=== PATIENT | male | born 1940 | race Caucasian/White ===

== ENCOUNTER → 2017-04-11 | Outpatient (CLI) | payer OTHER ==
[~2017-04-11] MED LIST: ALLO300T2 PO; ATOR-24 PO; CHOL100010 PO; HYDR2.5C37 TOP; LISI-461 PO
[2017-04-11 12:43] LABS: ALT/SGPT 24 U/L (12-78); BLOOD UREA NITROGEN 32 mg/dl (7-18); BUN/CREATININE RATIO 21.3 (10-20); CARBON DIOXIDE 28 mmol/L (21-32); CHLORIDE 108 mmol/L (98-107); CHOLESTEROL 116 mg/dl (0-200); GLUCOSE 95 mg/dl (70-99); POTASSIUM 3.9 mmol/L (3.5-5.1); SODIUM 143 mmol/L (136-145); TRIGLYCERIDES 95 mg/dl (0-150); VERY LOW DENSITY LIPOPROT CALC 19 mg/dl
[2017-04-11 12:47] LABS: ALB/GLOB RATIO 1.2 (0.9-2); ALKALINE PHOSPHATASE 66 U/L (45-117); AST/SGOT 26 U/L (15-37); CHOLESTEROL/HDL RATIO 3.3; HDL CHOLESTEROL 35 mg/dl; LDL CHOLESTEROL CALCULATED 62 mg/dl
[2017-04-11 12:50] LABS: CALCIUM 9.2 mg/dl (8.5-10.1)
[2017-04-11 13:12] LABS: ESTIMATED AVERAGE GLUCOSE 117 mg/dl; HA1C FLAG Normal (Normal)
--- NOTE | 2017-04-15 08:39 | CODING QUERY MEDICAL NECESSITY ---
SUPPORTING DIAGNOSIS NEEDED Dr. Harrell, A supporting diagnosis is required for the test/procedure performed on this patient in order for us to be reimbursed by the patient's insurance. Please provide a supporting diagnosis for the following test/procedure listed below next to the test name along with your signature. *If there is no additional diagnosis for this patient that would support the following test/procedure please document that below next to the test/procedure. Test(s)/Procedure(s) that require a supporting diagnosis: * [id number] GLYCATED HEMOGLOBIN DIAGNOSIS: DATE OF SERVICE: 04/11/17 Provider Signature: Date: Thank you Jameson Rios [facility] Information Management Once completed, please kindly fax back to [phone] For questions please call [phone]
== END | disposition home or self-care (01) ==
LOC: C.LABBFT 08:39
PROVIDERS: ATTEND Nurse Practitioner
DX: E78.00 Pure hypercholesterolemia, unspecified (principal); Z12.5 Encounter for screening for malignant neoplasm of prostate; R73.03 Prediabetes

== ENCOUNTER → 2017-04-19 | Outpatient (CLI) | payer OTHER ==
[2017-04-19 12:49] LABS: CALCIUM 9.2 mg/dl (8.5-10.1)
[2017-04-19 12:55] LABS: BLOOD UREA NITROGEN 27 mg/dl (7-18); BUN/CREATININE RATIO 18.1 (10-20); CARBON DIOXIDE 28 mmol/L (21-32); CHLORIDE 106 mmol/L (98-107); GLUCOSE 103 mg/dl (70-99); POTASSIUM 4.2 mmol/L (3.5-5.1); SODIUM 141 mmol/L (136-145)
== END | disposition home or self-care (01) ==
LOC: C.LABBFT 08:49
PROVIDERS: ATTEND Nurse Practitioner
DX: I10 Essential (primary) hypertension (principal)

== ENCOUNTER → 2017-10-04 | Outpatient (CLI) | payer OTHER ==
[2017-10-04 12:19] LABS: ALT/SGPT 22 U/L (12-78); AST/SGOT 24 U/L (15-37); BLOOD UREA NITROGEN 22 mg/dl (7-18); BUN/CREATININE RATIO 13.8 (10-20); CARBON DIOXIDE 27 mmol/L (21-32); CHLORIDE 105 mmol/L (98-107); CHOLESTEROL 154 mg/dl (0-200); CREATININE 1.56 mg/dl (0.60-1.40); GLUCOSE 96 mg/dl (70-99); POTASSIUM 4.8 mmol/L (3.5-5.1); SODIUM 141 mmol/L (136-145); TRIGLYCERIDES 141 mg/dl (0-150); VERY LOW DENSITY LIPOPROT CALC 28 mg/dl
[2017-10-04 12:26] LABS: ALB/GLOB RATIO 1.1 (0.9-2); ALKALINE PHOSPHATASE 73 U/L (45-117); CHOLESTEROL/HDL RATIO 3.4; ESTIMATED AVERAGE GLUCOSE 111 mg/dl; HA1C FLAG Normal (Normal); HDL CHOLESTEROL 45 mg/dl; LDL CHOLESTEROL CALCULATED 81 mg/dl
== END | disposition home or self-care (01) ==
LOC: C.LABBFT 09:18
PROVIDERS: ATTEND Nurse Practitioner
DX: R73.03 Prediabetes (principal); Z12.5 Encounter for screening for malignant neoplasm of prostate

== ENCOUNTER → 2018-04-03 | Outpatient (CLI) | payer OTHER ==
[2018-04-03 12:23] LABS: BASO % 0.6 %; BASO ABS # 0.06 K/uL (0-0.2); EOS % 9.4 %; HEMATOCRIT 45.3 % (42-52); HEMOGLOBIN 15.8 g/dL (14.0-18.0); IG# 0.03 K/uL (0.00-0.02); LYMPH ABS # 1.34 K/uL (1.2-3.4); MEAN CORPUSCULAR HEMOGLOBIN 32.8 pg (25-34); MEAN CORPUSCULAR HGB CONC 34.9 g/dl (32-36); MEAN PLATELET VOLUME 10.6 fL (7.4-10.4); MONO ABS # 1.24 K/uL (0.11-0.59); NEUT % 62.7 %; NEUT ABS # 5.98 K/uL (1.4-6.5); PLATELET COUNT 223 K/uL (130-400); RED CELL DISTRIBUTION WIDTH CV 12.4 % (11.5-14.5); RED CELL DISTRIBUTION WIDTH SD 42.7 fL (36.4-46.3); WHITE BLOOD COUNT 9.55 K/uL (4.8-10.8)
[2018-04-03 12:43] LABS: HEMOGLOBIN A1C 5.9 % (4.5-5.6)
[2018-04-03 12:47] LABS: ALBUMIN 3.7 gm/dl (3.4-5.0); ALT/SGPT 19 U/L (12-78); AST/SGOT 21 U/L (15-37); BLOOD UREA NITROGEN 21 mg/dl (7-18); CARBON DIOXIDE 28 mmol/L (21-32); CREATININE 1.67 mg/dl (0.60-1.40); GLUCOSE 102 mg/dl (70-99); POTASSIUM 3.9 mmol/L (3.5-5.1); SODIUM 141 mmol/L (136-145)
[2018-04-03 12:51] LABS: ALKALINE PHOSPHATASE 73 U/L (45-117); TOTAL PROTEIN 7.4 gm/dl (6.4-8.2)
== END | disposition home or self-care (01) ==
LOC: C.LABBFT 10:32
PROVIDERS: ATTEND Nurse Practitioner
DX: R73.03 Prediabetes (principal)

== ENCOUNTER 2022-01-14 13:25 | Inpatient (IN) ==
[2022-01-14 14:55] LABS: Hematocrit (blood only) 45.7 % (42-52); Hemoglobin 15.8 g/dL (14.0-18.0); Mean Corpuscular Hemoglobin 31.8 pg (25-34); Mean Corpuscular Hgb Conc 34.6 g/dL (32-36); Mean Platelet Volume 10.5 fL (7.4-10.4); Platelet Count 255 K/uL (130-400); RDW Standard Deviation 47.1 fL (36.4-46.3); Red Blood Count 4.97 M/uL (4.7-6.1); White Blood Count 14.58 K/uL (4.8-10.8)
[2022-01-14 15:20] LABS: Alanine Aminotransferase 50 U/L (7-52); Albumin Globulin Ratio 0.9 (0.9-2); Albumin Level 3.4 gm/dl (3.4-5.0); Alkaline Phosphatase 70 U/L (34-104); Anion Gap 7 (3-11); Aspartate Aminotransferase 65 U/L (13-39); BUN Creatinine Ratio 17.6 (10-20); Bilirubin,Total 0.7 mg/dl (0.2-1.0); Blood Urea Nitrogen 33 mg/dl (6-23); Calcium 9.6 mg/dl (8.5-10.1); Carbon Dioxide 25 mmol/L (21-32); Chloride 104 mmol/L (98-107); Est GFR (African American) 38.8 ml/min; Est GFR (Non-African American) 33.4 ml/min; Globulin 3.9 gm/dl (2.5-4.0); Glucose 98 mg/dl (70-99(Fasting)); Magnesium 2.2 mg/dl (1.7-2.4); Phosphorus 3.5 mg/dl (2.5-4.9); Potassium 4.8 mmol/L (3.5-5.1); Sodium 136 mmol/L (136-145); Total Protein 7.3 gm/dl (6.0-8.3)
--- NOTE | 2022-01-14 15:22 | XRay Report ---
XR chest 1V portable CLINICAL HISTORY: cough, shortness of breath COMPARISON STUDY: No previous studies for comparison. FINDINGS: Lung volumes are normal. No pneumothorax or pleural effusion is noted. Extensive bilateral airspace opacities are present. Cardiomegaly is noted. There is no evidence for pulmonary edema. IMPRESSION: Extensive bilateral airspace opacities which favor an infectious process such as viral p neumonia. Radiographic follow up to ensure resolution is recommended. ACT 112: Negative or not required by law. Electronically signed by: Kevin Palmer M.D. 01/14/2022 3:21 PM
[2022-01-14 15:30] LABS: Basophils # (auto) 0.04 K/uL (0-0.2); Basophils % (auto) 0.3 %; Eosinophils # (auto) 0.07 K/uL (0-0.5); Eosinophils % (auto) 0.5 %; Immature Granulocytes # (auto) 0.04 K/uL (0.00-0.02); Immature Granulocytes % (auto) 0.3 %; Lymphocytes # (auto) 2.18 K/uL (1.2-3.4); Monocytes % (auto) 5.5 %; Neutrophils # (auto) 11.45 K/uL (1.4-6.5); Neutrophils % (auto) 78.4 %; RBC Morphology Unremarkable
[2022-01-14] MEDS ORDERED: dexAMETHasone**PF** 10 MG/ML VIAL IV ONE (15:33)
[2022-01-14] MEDS ORDERED: guaiFENesin 600 MG TABCR PO STA (15:33)
[2022-01-14] MEDS ORDERED: IPRATROPIUM BROMIDE/ALBUTEROL respimat INH INH STA (15:33)
--- NOTE | 2022-01-14 16:34 | Emergency Department Note ---
Impression & Plan Pneumonia due to COVID-19 virus, CKD (chronic kidney disease), Elevated troponin, Acute UTI, Hypoxia ED Provider Note NAME: LEEANN BLUM AGE: 81 SEX: M ARRIVES VIA: Walk-In INFORMANT: Patient, Son ED PROVIDER(S): Richard Danielle MD CHIEF COMPLAINT: Referred, hypoxia, confusion, FTT PLAN: Disposition: Admit MEDICAL DECISION MAKING: The patient is a pleasant 81-year-old gentleman with a past medical history of CKD, GERD, hypertension, hyperlipidemia, gout who presents to the emergency department for evaluation of hypoxia after being seen by his PCPs office today where they were concerned for his hypoxia and failure to thrive. The patient is a poor historian as is his son at the bedside. The patient denies any particular complaints despite his oxygen documented to be in the low 80s on room air at his PCPs appointment. Per records the family had respiratory illness within the past month but the majority did not get tested for COVID-19. It appears that a single family ever did get tested and tested positive. The patient initially is against being admitted to the hospital but upon further explanation he is in agreement. His son is also in agreement. The extent to which the patient can consent is questionable. He has an indwelling See catheter which was recently placed due to urinary retention and he continues to ask to be allowed to get up and walk to the bathroom to urinate. Patient was seen in the ED on 01/10 for acute urinary retention when his see catheter was placed. UA was negative at that time. He was discharged with Flomax and urology referral. On arrival the patient is in no acute distress, afebrile with stable vital signs. He appears clinically dry. He has scattered intermittent wheezes and rhonchi of bilateral lung cevallos. He exhibits mild confusion per HPI above and otherwise has no focal neurologic deficits. EKG without overt acute ischemia. CXR negative with extensive bilateral airspace opacities c/w viral pna. WBC 14.5K. H/H, platelets wnl. Chemistry without acidosis. Cr 1.8 within prior range of values. Electrolytes unremarkable. AST 65, nonspecific. Otherwise, LFTs without significant abnormality. Troponin 0.05 marginally elevated above normal in the setting of patient's CKD. Covid-19 RNA, NAAT was positive. Patient treated with dexamethasone given hypoxia. CT head negative for acute process. CT chest further characterizes Extensive bilateral mixed groundglass and consolidative opacities c/w with covid-19 pna given positive Covid-19 RNA, NAAT test. Incidental mild fusiform dilation of ascending thoracic aorta is seen. Prostamegaly is noted c/w chronic bladder outlet obstruction. No hydronephrosis though mild nonspecific bilateral perinephric stranding is noted. UA resulting from see catheter after bag change is suggestive of infection. ABX per admitting team. Case was d/w ANN-MARIE Wallace hospitalist who will evaluate the patient for admission. Triage Nursing notes reviewed and agree them. Prior medical records reviewed Vital Signs: reviewed and remarkable for hypoxia. Differential diagnosis: Infection, dehydration, metabolic abnormality, hypo/hyperglycemia, electrolyte disturbance, anemia, hypoxia, cardiac sources, intracerebral event, toxicologic, neurologic, as well as other pathologies. ER treatment provided: See below. Diagnostics interpreted by me: ECG: Sinus tachycardia, 105 bpm, no ectopy, no overt ST elevation or depression, QTC 430, QRS 76. Cardiac Monitoring: An order for continuous cardiac monitoring was placed and demonstrated sinus tachycardia, 105 bpm, no ectopy Laboratory studies: See below Imaging studies: See below Consultation(s): Case was d/w ANN-MARIE Wallace hospitalist who will evaluate the patient for admission. HPI: The patient is a pleasant 81-year-old gentleman with a past medical history of CKD, GERD, hypertension, hyperlipidemia, gout who presents to the emergency department for evaluation of hypoxia after being seen by his PCPs office today where they were concerned for his hypoxia and failure to thrive. The patient is a poor historian as is his son at the bedside. The patient denies any particular complaints despite his oxygen documented to be in the low 80s on room air at his PCPs appointment. Per records the family had respiratory illness within the past month but the majority did not get tested for COVID-19. It appears that a single family ever did get tested and tested positive. The patient initially is against being admitted to the hospital but upon further explanation he is in agreement. His son is also in agreement. The extent to which the patient can consent is questionable. He has an indwelling See catheter which was recently placed due to urinary retention and he continues to ask to be allowed to get up and walk to the bathroom to urinate. ROS: See above HPI for pertinent positives & negatives. A total of 10 systems reviewed and were otherwise negative. PAST MEDICAL HISTORY:See Below PAST SURGICAL HISTORY:See Below FAMILY HISTORY:See Below SOCIAL HISTORY:See Below HOME MEDICATIONS:See Below ALLERGIES:See Below VITALS:See Below PHYSICAL EXAMINATION: GENERAL: Awake, alert, unkempt-appearing, fatigued, in no distress HENT: Normocephalic, atraumatic. Oropharynx with dry mucous membranes and otherwise unremarkable. EYES: Normal conjunctiva. Sclera non-icteric. NECK: Supple. No nuchal rigidity. FROM. No JVD. RESPIRATORY: Scattered intermittent wheezes and rhonchi of bilateral lung cevallos. CARDIAC: Regular rate, normal rhythm. Extremities warm and well perfused. Pulses equal. ABDOMEN: Soft, non-distended. No tenderness to palpation. No rebound or guarding. No masses. : See catheter present. RECTAL: Deferred. MUSCULOSKELETAL: Chest examination reveals no tenderness. The back is symmetrical on inspection without obvious abnormality. There is no CVA tenderness to palpation. No joint edema. LOWER EXTREMITIES: Calves are equal size bilaterally and non-tender. No edema. No discoloration. NEURO: Mild confusion. No focal neurologic deficits SKIN: No rash or jaundice noted. Richard Danielle MD Past Med/Surg History Medical History GERD with apnea Hypertension Pain and swelling of left lower leg Surgical History History of cholecystectomy History of colonoscopy History of hernia repair No pertinent past surgical history Family History Mother Diabetes Other Hypertension Denies family history of Ovarian cancer Prostate cancer Myocardial infarction Breast cancer Colorectal cancer Social History Smoking Status: Former smoker Tobacco Type: Cigarettes Age Started Using Tobacco: 14; Age Quit Using Tobacco: 24; packs per day: 2; Second Hand Exposure: Yes (as child ); Hx Alcohol Use: Yes (rarely ) Hx Substance Use: No Preferred Language: Dutch Communication Ability: Effective Visual Impairment: No Limitations Hearing Ability: Use of Hearing Aid Data Management Analyst Required: No Beliefs That Will Affect Care: None marital status: / Current Living Situation: Family Current Living Situation Comment: his oldest son lives with him current occupational status: 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 Feels Safe at Home: Yes Childhood Exposure to Second-Hand Smoke: Yes caffeine: Yes Dental Care, Regularly: No Physical Activity Frequency: Does not Exercise Seatbelt Use: always Sunscreen Use: No Allergies Allergies Allergy/AdvReac Type Severity Reaction Status Date / Time adhesive tape Allergy Intermediate REDDENED Verified 01/14/22 15:44 SKIN atorvastatin [From Lipitor] AdvReac Intermediate myalgias Verified 01/14/22 15:44 Home Meds Previous Rx's Medication Instructions Recorded cholecalciferol (vitamin D3) 50 2,000 units PO DAILY #90 cap 06/13/19 mcg (2,000 unit) capsule atorvastatin 40 mg tablet 40 mg PO DAILY #90 tab 06/29/21 lisinopril 10 mg tablet 10 mg PO DAILY #90 tab 06/29/21 tamsulosin 0.4 mg capsule 0.4 mg PO DAILY #90 cap 06/29/21 Results & Data (ED) Vital Signs Vital Signs - 24 hr 01/14/22 13:49 01/14/22 15:00 01/14/22 18:00 Temperature 37 C Temperature Source Temporal Artery Scan Pulse Rate 119 H Pulse Rate [Right Finger] 99 H 86 Pulse Rhythm [Right Finger] Regular Pulse Strength [Right Finger] Normal Respiratory Rate 20 19 18 Respiratory Effort / Characteristics Non-Labored Respiratory Depth Normal Respiratory Pattern Regular Blood Pressure 128/84 Blood Pressure [Left Arm] 106/83 131/79 Blood Pressure Mean 98 Blood Pressure Mean [Left Arm] 90 96 Blood Pressure Position Sitting Blood Pressure Position [Left Arm] Lying Pulse Oximetry 91 93 93 Oxygen Delivery Method Room Air Room Air Room Air Sepsis Recent Fever Within 48 Hours No Sepsis New/Unexplained Change in Mental Status No Sepsis Action Taken by Nursing No Action Required 01/14/22 19:50 01/14/22 20:18 Temperature Temperature Source Pulse Rate Pulse Rate [Right Finger] 96 H 100 H Pulse Rhythm [Right Finger] Regular Pulse Strength [Right Finger] Normal Respiratory Rate 18 Respiratory Effort / Characteristics Non-Labored Respiratory Depth Normal Respiratory Pattern Regular Blood Pressure Blood Pressure [Left Arm] 117/75 Blood Pressure Mean Blood Pressure Mean [Left Arm] 89 Blood Pressure Position Blood Pressure Position [Left Arm] Lying Pulse Oximetry 97 93 Oxygen Delivery Method Room Air Sepsis Recent Fever Within 48 Hours Sepsis New/Unexplained Change in Mental Status Sepsis Action Taken by Nursing Laboratory Data Attestation: I reviewed the patient's lab results. Result diagrams: 01/14/22 14:42 01/14/22 14:42 Lab Results 01/14/22 01/14/22 01/14/22 Range/Units 14:42 14:42 14:42 WBC 14.58 H (4.8-10.8) K/uL RBC 4.97 (4.7-6.1) M/uL Hgb 15.8 (14.0-18.0) g/dL Hct 45.7 (42-52) % MCV 92.0 (80-100) fL MCH 31.8 (25-34) pg MCHC 34.6 (32-36) g/dL RDW Std Deviation 47.1 H (36.4-46.3) fL RDW Coeff of Yudelka 14.0 (11.5-14.5) % Plt Count 255 (130-400) K/uL MPV 10.5 H (7.4-10.4) fL Immature Gran % (Auto) 0.3 % Neut % (Auto) 78.4 % Lymph % (Auto) 15.0 % [place] % (Auto) 5.5 % Eos % (Auto) 0.5 % Baso % (Auto) 0.3 % Neut # (Auto) 11.45 H (1.4-6.5) K/uL Lymph # (Auto) 2.18 (1.2-3.4) K/uL [place] # (Auto) 0.80 H (0.11-0.59) K/uL Eos # (Auto) 0.07 (0-0.5) K/uL Baso # (Auto) 0.04 (0-0.2) K/uL Immature Gran # (Auto) 0.04 H (0.00-0.02) K/uL RBC Morphology Unremarkable Sodium 136 (136-145) mmol/L Potassium 4.8 (3.5-5.1) mmol/L Chloride 104 (98-107) mmol/L Carbon Dioxide 25 (21-32) mmol/L Anion Gap 7 (3-11) BUN 33 H (6-23) mg/dl Creatinine 1.87 H (0.6-1.4) mg/dl Est Cr Clr Drug Dosing Not Reportable Est GFR ( Amer) 38.8 ml/min Est GFR (Non-Af Amer) 33.4 ml/min BUN/Creatinine Ratio 17.6 (10-20) Glucose 98 (70-99(Fasting)) mg/dl Calcium 9.6 (8.5-10.1) mg/dl Phosphorus 3.5 Cancelled (2.5-4.9) mg/dl Magnesium 2.2 Cancelled (1.7-2.4) mg/dl Total Bilirubin 0.7 (0.2-1.0) mg/dl AST 65 H (13-39) U/L ALT 50 (7-52) U/L Alkaline Phosphatase 70 (34-104) U/L Troponin I (0-0.04) ng/ml B-Natriuretic Peptide (0-100) pg/ml Total Protein 7.3 (6.0-8.3) gm/dl Albumin 3.4 (3.4-5.0) gm/dl Globulin 3.9 (2.5-4.0) gm/dl Albumin/Globulin Ratio 0.9 (0.9-2) Urine Color Urine Appearance (Clear) Urine pH (4.5-7.5) Ur Specific Hunter (1.000-1.030) Urine Protein (Negative) Urine Glucose (UA) (Negative) Urine Ketones (Negative) Urine Blood (Negative) Urine Nitrite (Negative) Urine Bilirubin (Negative) Urine Urobilinogen (Negative) Ur Leukocyte Esterase (Negative) Urine WBC (Auto) (0-5) /hpf Urine RBC (Auto) (0-4) /hpf U Hyaline Cast (Auto) (0-5) /lpf U Epithel Cells (Auto) (0-5) /lpf Urine Bacteria (Auto) (Negative) SARS-CoV-2, RNA, NAAT (NEGATIVE) 01/14/22 01/14/22 01/14/22 Range/Units 14:42 15:34 16:33 WBC (4.8-10.8) K/uL RBC (4.7-6.1) M/uL Hgb (14.0-18.0) g/dL Hct (42-52) % MCV (80-100) fL MCH (25-34) pg MCHC (32-36) g/dL RDW Std Deviation (36.4-46.3) fL RDW Coeff of Yudelka (11.5-14.5) % Plt Count (130-400) K/uL MPV (7.4-10.4) fL Immature Gran % (Auto) % Neut % (Auto) % Lymph % (Auto) % [place] % (Auto) % Eos % (Auto) % Baso % (Auto) % Neut # (Auto) (1.4-6.5) K/uL Lymph # (Auto) (1.2-3.4) K/uL [place] # (Auto) (0.11-0.59) K/uL Eos # (Auto) (0-0.5) K/uL Baso # (Auto) (0-0.2) K/uL Immature Gran # (Auto) (0.00-0.02) K/uL RBC Morphology Sodium (136-145) mmol/L Potassium (3.5-5.1) mmol/L Chloride (98-107) mmol/L Carbon Dioxide (21-32) mmol/L Anion Gap (3-11) BUN (6-23) mg/dl Creatinine (0.6-1.4) mg/dl Est Cr Clr Drug Dosing Est GFR ( Amer) ml/min Est GFR (Non-Af Amer) ml/min BUN/Creatinine Ratio (10-20) Glucose (70-99(Fasting)) mg/dl Calcium (8.5-10.1) mg/dl Phosphorus (2.5-4.9) mg/dl Magnesium (1.7-2.4) mg/dl Total Bilirubin (0.2-1.0) mg/dl AST (13-39) U/L ALT (7-52) U/L Alkaline Phosphatase (34-104) U/L Troponin I 0.05 H* (0-0.04) ng/ml B-Natriuretic Peptide 88 (0-100) pg/ml Total Protein (6.0-8.3) gm/dl Albumin (3.4-5.0) gm/dl Globulin (2.5-4.0) gm/dl Albumin/Globulin Ratio (0.9-2) Urine Color Urine Appearance (Clear) Urine pH (4.5-7.5) Ur Specific Hunter (1.000-1.030) Urine Protein (Negative) Urine Glucose (UA) (Negative) Urine Ketones (Negative) Urine Blood (Negative) Urine Nitrite (Negative) Urine Bilirubin (Negative) Urine Urobilinogen (Negative) Ur Leukocyte Esterase (Negative) Urine WBC (Auto) (0-5) /hpf Urine RBC (Auto) (0-4) /hpf U Hyaline Cast (Auto) (0-5) /lpf U Epithel Cells (Auto) (0-5) /lpf Urine Bacteria (Auto) (Negative) SARS-CoV-2, RNA, NAAT POSITIVE A* (NEGATIVE) 01/14/22 Range/Units 18:30 WBC (4.8-10.8) K/uL RBC (4.7-6.1) M/uL Hgb (14.0-18.0) g/dL Hct (42-52) % MCV (80-100) fL MCH (25-34) pg MCHC (32-36) g/dL RDW Std Deviation (36.4-46.3) fL RDW Coeff of Yudelka (11.5-14.5) % Plt Count (130-400) K/uL MPV (7.4-10.4) fL Immature Gran % (Auto) % Neut % (Auto) % Lymph % (Auto) % [place] % (Auto) % Eos % (Auto) % Baso % (Auto) % Neut # (Auto) (1.4-6.5) K/uL Lymph # (Auto) (1.2-3.4) K/uL [place] # (Auto) (0.11-0.59) K/uL Eos # (Auto) (0-0.5) K/uL Baso # (Auto) (0-0.2) K/uL Immature Gran # (Auto) (0.00-0.02) K/uL RBC Morphology Sodium (136-145) mmol/L Potassium (3.5-5.1) mmol/L Chloride (98-107) mmol/L Carbon Dioxide (21-32) mmol/L Anion Gap (3-11) BUN (6-23) mg/dl Creatinine (0.6-1.4) mg/dl Est Cr Clr Drug Dosing Est GFR ( Amer) ml/min Est GFR (Non-Af Amer) ml/min BUN/Creatinine Ratio (10-20) Glucose (70-99(Fasting)) mg/dl Calcium (8.5-10.1) mg/dl Phosphorus (2.5-4.9) mg/dl Magnesium (1.7-2.4) mg/dl Total Bilirubin (0.2-1.0) mg/dl AST (13-39) U/L ALT (7-52) U/L Alkaline Phosphatase (34-104) U/L Troponin I (0-0.04) ng/ml B-Natriuretic Peptide (0-100) pg/ml Total Protein (6.0-8.3) gm/dl Albumin (3.4-5.0) gm/dl Globulin (2.5-4.0) gm/dl Albumin/Globulin Ratio (0.9-2) Urine Color Yellow Urine Appearance Clear (Clear) Urine pH 7.5 (4.5-7.5) Ur Specific Hunter 1.019 (1.000-1.030) Urine Protein 1+ H (Negative) Urine Glucose (UA) Negative (Negative) Urine Ketones Negative (Negative) Urine Blood 2+ H (Negative) Urine Nitrite Positive A (Negative) Urine Bilirubin Negative (Negative) Urine Urobilinogen Negative (Negative) Ur Leukocyte Esterase 2+ H (Negative) Urine WBC (Auto) >30 H (0-5) /hpf Urine RBC (Auto) 10-30 H (0-4) /hpf U Hyaline Cast (Auto) 1-5 (0-5) /lpf U Epithel Cells (Auto) 0-5 (0-5) /lpf Urine Bacteria (Auto) 4+ H (Negative) SARS-CoV-2, RNA, NAAT (NEGATIVE) Administered Medications Albuterol (Albut/Ipratrop 3mg/0.5mg Neb 3 Ml Vial) 3 ml NEB QIDR PASQUALE; Protocol Stop: 02/13/22 18:59 Last Admin: 01/14/22 19:37 Dose: 3 ml Documented by: [id number] Sodium Chloride (Nss) 500 mls @ 100 mls/hr IV .Q5H [facility] Stop: 02/13/22 15:44 Last Infusion: 01/14/22 20:26 Dose: 100 mls/hr Documented by: [id number] Admin: 01/14/22 20:25 Dose: 125 mls/hr Documented by: [id number] Infusion: 02/24/22 20:25 Dose: 125 mls/hr Documented by: [id number] Admin: 01/14/22 16:47 Dose: 125 mls/hr Documented by: [id number] Ceftriaxone Sodium 1,000 mg/ (Dextrose) 50 mls @ 100 mls/hr IV Q24H PASQUALE; Protocol Stop: 01/21/22 18:14 Last Infusion: 01/14/22 20:06 Dose: 0 mls/hr Documented by: [id number] Admin: 01/14/22 19:36 Dose: 100 mls/hr Documented by: [id number] Nystatin (Nystatin Oint 15 Gm Tube) 1 appln EXT BID PASQUALE Stop: 02/13/22 20:59 Last Admin: 01/14/22 20:25 Dose: 1 appln Documented by: [id number] Discontinued Medications Albuterol (Ipratropium [place]/Albuterol Respimat Inh) 2 puffs INH NOW STA Stop: 01/14/22 15:34 Last Admin: 01/14/22 16:46 Dose: 2 puffs Documented by: [id number] Azithromycin (Azithromycin 250 Mg Tab) 500 mg PO NOW ONE Stop: 01/14/22 18:16 Last Admin: 01/14/22 19:36 Dose: 500 mg Documented by: [id number] Dexamethasone Sodium Phosphate (DexamethasonePf 10 Mg/Ml Vial) 10 mg IV NOW ONE Stop: 01/14/22 15:34 Last Admin: 01/14/22 16:46 Dose: 10 mg Documented by: [id number] Guaifenesin (Guaifenesin 600 Mg Tabcr) 600 mg PO NOW STA Stop: 01/14/22 15:34 Last Admin: 01/14/22 16:46 Dose: 600 mg Documented by: [id number] Imaging Data Radiologist's Impression: Chest X-Ray 01/14/22 13:55 XR chest 1V portable CLINICAL HISTORY: cough, shortness of breath COMPARISON STUDY: No previous studies for comparison. FINDINGS: Lung volumes are normal. No pneumothorax or pleural effusion is noted. Extensive bilateral airspace opacities are present. Cardiomegaly is noted. There is no evidence for pulmonary edema. IMPRESSION: Extensive bilateral airspace opacities which favor an infectious process such as viral pneumonia. Radiographic follow up to ensure resolution is recommended. ACT 112: Negative or not required by law. Electronically signed by: Kevin Palmer M.D. 01/14/2022 3:[address] 01/14/22 14:57 CT OF THE HEAD WITHOUT CONTRAST CLINICAL HISTORY: Altered mental status. COMPARISON STUDY: No previous studies for comparison. TECHNIQUE: Helical axial images of the head were obtained without IV contrast. Automated exposure control was utilized for the study. A dose lowering technique was utilized adhering to the principles of ALARA. FINDINGS: No acute intracranial hemorrhage, midline shift or mass effect is present. The ventricular system is unremarkable. The basal cisterns are patent. No extra-axial collections are present. White matter hypodensity suggests small vessel disease. There are no findings to suggest acute dural sinus thrombosis or acute territorial infarct. No significant calvarial abnormalities are present. Visualized portions of the sinuses and mastoid air cells are clear. IMPRESSION: No acute intracranial findings. ACT 112: Negative or not required by law. Electronically signed by: Kevin Palmer M.D. 01/14/2022 4:33 PM Abdomen/Pelvis CT 01/14/22 15:31 CT chest diagnostic wo con, CT abd pelvis wo con CT DOSE: 2468.85 mGy.cm CLINICAL HISTORY: 81 years-old Male with ams, hypoxia. Acute hypoxia with altered mental status. COVID Positive. Acute urinary tract infection TECHNIQUE: Multiaxial CT images of the chest, abdomen and pelvis were performed without contrast. A dose lowering technique was utilized adhering to the principles of ALARA. COMPARISON: Chest radiograph of same day, lumbar spine radiographs 02/03/2016 FINDINGS: CT CHEST: No large thyroid nodule. Mildly prominent subcentimeter subcarinal lymph nodes. The heart is upper limits of normal in size. Extensive coronary artery calcifications are noted along with calcifications of the aortic annulus and thoracic aortic arch. Mild fusiform dilation of the ascending thoracic aorta measures 4.2 x 4.1 cm. No pneumothorax, or pleural effusion. Extensive multifocal intermixed groundglass and consolidative opacities are noted within a multilobar and bibasilar predominant distribution. The central airways are patent. Unremarkable soft tissues. Degenerative changes of the shoulders and spi ne. CT ABDOMEN/PELVIS: No pneumatosis or pneumoperitoneum. The unenhanced spleen, pancreas, adrenal glands and liver appear unremarkable. Cholecystectomy. Mild nonspecific bilateral perinephric stranding. 1.5 cm cortical calcification of the interpolar left kidney. There is associated cortical thinning with parenchymal scarring within the area of calcification. No ureteral calculi or hydronephrosis. A See catheter is noted within a decompressed urinary bladder which demonstrates wall thickening. Prostamegaly. Small fat filled inguinal hernias. Atherosclerosis of the abdominal aorta without aneurysm. No adenopathy. Small hiatal hernia. No bowel obstruction or bowel wall thickening. Mild fecal retention. Noninflamed appendix. Prior ventral abdominal wall herniorrhaphy. Soft tissues are otherwise unremarkable. Degenerative changes of the spine, pelvis and hips. IMPRESSION: 1. Extensive bilateral mixed groundglass and consolidative opacities within a bibasilar prominent distribution are compatible with viral pneumonia. 2. Mild fusiform dilation of the ascending thoracic aorta, 4.2 x 4.1 cm. 3. No bowel obstruction or bowel wall thickening. Normal appendix. 4. Small hiatal hernia. 5. Prostamegaly with findings suggestive of chronic bladder outlet obstruction. 6. 1.5 cm left renal calcification. ACT 112: Negative or not required by law. Electronically signed by: Johnny Browning M.D. 01/14/2022 4:[address] 01/14/22 15:31 CT chest diagnostic wo con, CT abd pelvis wo con CT DOSE: 2468.85 mGy.cm CLINICAL HISTORY: 81 years-old Male with ams, hypoxia. Acute hypoxia with altered mental status. COVID Positive. Acute urinary tract infection TECHNIQUE: Multiaxial CT images of the chest, abdomen and pelvis were performed without contrast. A dose lowering technique was utilized adhering to the principles of ALARA. COMPARISON: Chest radiograph of same day, lumbar spine radiographs 02/03/2016 FINDINGS: CT CHEST: No large thyroid nodule. Mildly prominent subcentimeter subcarinal lymph nodes. The heart is upper limits of normal in size. Extensive coronary artery calcifications are noted along with calcifications of the aortic annulus and thoracic aortic arch. Mild fusiform dilation of the ascending thoracic aorta measures 4.2 x 4.1 cm. No pneumothorax, or pleural effusion. Extensive multifoc al intermixed groundglass and consolidative opacities are noted within a multilobar and bibasilar predominant distribution. The central airways are patent. Unremarkable soft tissues. Degenerative changes of the shoulders and spine. CT ABDOMEN/PELVIS: No pneumatosis or pneumoperitoneum. The unenhanced spleen, pancreas, adrenal glands and liver appear unremarkable. Cholecystectomy. Mild nonspecific bilateral perinephric stranding. 1.5 cm cortical calcification of the interpolar left kidney. There is associated cortical thinning with parenchymal scarring within the area of calcification. No ureteral calculi or hydronephrosis. A See catheter is noted within a decompressed urinary bladder which demonstrates wall thickening. Prostamegaly. Small fat filled inguinal hernias. Atherosclerosis of the abdominal aorta without aneurysm. No adenopathy. Small hiatal hernia. No bowel obstruction or bowel wall thickening. Mild fecal retention. Noninflamed appendix. Prior ventral abdominal wall herniorrhaphy. Soft tissues are otherwise unremarkable. Degenerative changes of the spine, pelvis and hips. IMPRESSION: 1. Extensive bilateral mixed groundglass and consolidative opacities within a bibasilar prominent distribution are compatible with viral pneumonia. 2. Mild fusiform dilation of the ascending thoracic aorta, 4.2 x 4.1 cm. 3. No bowel obstruction or bowel wall thickening. Normal appendix. 4. Small hiatal hernia. 5. Prostamegaly with findings suggestive of chronic bladder outlet obstruction. 6. 1.5 cm left renal calcification. ACT 112: Negative or not required by law. Electronically signed by: Johnny Browning M.D. 01/14/2022 4:47 PM Discharge Plan Visit Data Chief Complaint: Illness Stated Complaint: BP DROPS WHEN STANDING, SHALLOW BREATHING ED Provider: Richard Danielle Discharge Problem: Pneumonia due to COVID-19 virus, CKD (chronic kidney disease), Elevated troponin, Acute UTI, Hypoxia Patient Disposition: Admitted As Inpatient Forms Stand Alone Forms: [facility] Prescriptions Prescriptions: No Action cholecalciferol (vitamin D3) 2,000 unit capsule 2,000 units PO DAILY Qty: 90 RF: 3 atorvastatin 40 mg tablet 40 mg PO DAILY Qty: 90 RF: 3 lisinopril 10 mg tablet 10 mg PO DAILY Qty: 90 RF: 3 tamsulosin 0.4 mg capsule 0.4 mg PO DAILY Qty: 90 RF: 3 Referrals Referrals: Yessy Mills CRNP [Primary Care Provider] -
[2022-01-14] MEDS: SODIUM CHLORIDE 0.9% 500 ML IV SCH ×2 (16:47→20:25)
--- NOTE | 2022-01-14 16:49 | CT Scan Report ---
CT chest diagnostic wo con, CT abd pelvis wo con CT DOSE: 2468.85 mGy.cm CLINICAL HISTORY: 81 years-old Male with ams, hypoxia. Acute hypoxia with altered mental status. COV ID Positive. Acute urinary tract infection TECHNIQUE: Multiaxial CT images of the chest, abdomen and pelvis were performed without contrast. A dose lowering technique was utilized adhering to the principles of ALARA. COMPARISON: Chest radiograph of same day, lumbar spine radiographs 02/03/2016 FINDINGS: CT CHEST: No large thyroid nodule. Mildly prominent subcentimeter subcarinal lymph nodes. The heart is upper li mits of normal in size. Extensive coronary artery calcifications are noted along with calcifications of the aortic annulus and thoracic aortic arch. Mild fusiform dilation of the ascending thoracic aort a measures 4.2 x 4.1 cm. No pneumothorax, or pleural effusion. Extensive multifocal intermixed ground glass and consolidative opacities are noted within a multilobar and bibasilar predominant distributio n. The central airways are patent. Unremarkable soft tissues. Degenerative changes of the shoulders a nd spine. CT ABDOMEN/PELVIS: No pneumatosis or pneumoperitoneum. The unenhanced spleen, pancreas, adrenal glands and liver appear unremarkable. Cholecystectomy. Mild nonspecific bilateral perinephric stranding. 1.5 cm cortical calc ification of the interpolar left kidney. There is associated cortical thinning with parenchymal scarr ing within the area of calcification. No ureteral calculi or hydronephrosis. A Dempsey catheter is note d within a decompressed urinary bladder which demonstrates wall thickening. Prostamegaly. Small fat f illed inguinal hernias. Atherosclerosis of the abdominal aorta without aneurysm. No adenopathy. Small hiatal hernia. No bowel obstruction or bowel wall thickening. Mild fecal retention. Noninflamed appendix. Prior ventral abdominal wall herniorrhaphy. Soft tissues are otherwise unremarkable. Degen erative changes of the spine, pelvis and hips. IMPRESSION: 1. Extensive bilateral mixed groundglass and consolidative opacities within a bibasilar prominent dis tribution are compatible with viral pneumonia. 2. Mild fusiform dilation of the ascending thoracic aorta, 4.2 x 4.1 cm. 3. No bowel obstruction or bowel wall thickening. Normal appendix. 4. Small hiatal hernia. 5. Prostamegaly with findings suggestive of chronic bladder outlet obstruction. 6. 1.5 cm left renal calcification. ACT 112: Negative or not required by law. Electronically signed by: Johnny Browning M.D. 01/14/2022 4:47 PM
--- NOTE | 2022-01-14 17:46 | Electrocardiogram Report ---
Test Reason : Blood Pressure : / mmHG Vent. Rate : 105 BPM Atrial Rate : 105 BPM P-R Int : 162 ms QRS Dur : 076 ms QT Int : 326 ms P-R-T Axes : 063 -12 054 degrees QTc Int : 430 ms Sinus tachycardia Otherwise normal ECG No previous ECGs available Confirmed by Tarik Dumont ([id number]) on 01/14/2022 5:45:50 PM Referred By: Confirmed By:Negro Dumont
[2022-01-14] MEDS ORDERED: MAGNESIUM HYDROXIDE SUSP 30 ML UDC PO PRN (18:15)
[2022-01-14] MEDS ORDERED: cefTRIAXone SODIUM 1,000 MG in DEXTROSE 5% 50 ML IV SCH (18:15)
[2022-01-14] MEDS ORDERED: POLYETHYLENE (MIRALAX) 17 GM PACK PO PRN (18:15)
[2022-01-14] MEDS ORDERED: ALUMINUM/MAGNESIUM SUSP 30 ML UDC PO PRN (18:15)
[2022-01-14] MEDS ORDERED: ACETAMINOPHEN 325 MG TAB PO PRN (18:15)
[2022-01-14] MEDS ORDERED: ONDANSETRON INJ 2 MG/ML 2 ML VIAL IV PRN (18:15)
[2022-01-14] MEDS ORDERED: AZITHROMYCIN 250 MG TAB PO ONE (18:15)
--- NOTE | 2022-01-14 18:51 | History & Physical Report ---
Date of Service January 14, 2022 Assessment & Plan (1) COVID-19: Plan: Unclear as to the acuteness of this diagnosis given his symptom onset and exposure 1 month ago Full admit to med/surg unit Unfortunately without previous positive, will need to initiate isolation from date positive test Place in Covid isolation precautions Currently he is not hypoxic, will defer additional doses of Decadron at this time Outside of the window and not a candidate for remdesivir Initiate DuoNebs 4 times daily Vitamin C, zinc, Vitamin D supplementation Mucolytics Empiric antibiotic coverage with Zithromax and Rocephin in the event of superimposed bacterial pneumonia (2) Leukocytosis: Plan: Unclear etiology? Obtain set of blood cultures, UA prior to administration of antibiotics Sputum culture and Gram stain Empiric Rocephin and Zithromax as noted above Trend CBC (3) Hypoxia: Plan: Transient, not presently hypoxic We will monitor pulse ox Utilize supplemental oxygen as needed for SPO2 less than 90% (4) Acute on chronic renal failure: Plan: Appears intravascularly dry at this time Continue IV fluid hydration with NSS at 100 mL/h Hold lisinopril Monitor renal function with BMP in the morning (5) Failure to thrive: Plan: Suspect that this is related to his Covid diagnosis PT/OT eval Dietitian consult, may benefit from nutritional supplements Case management consult for discharge planning, may require rehab upon discharge (6) Generalized weakness: Plan: As above (7) Acute urinary retention: Plan: Maintain See catheter Obtain UA and urine culture as indicated above Continue Flomax (8) Hypertension: Plan: Hold lisinopril due to acute on chronic renal failure Presently blood pressure acceptable range (9) Hypercholesterolemia: Plan: AST mildly elevated we will hold statin therapy for now Plan: Interventions as outlined above. DVT prophylaxis will be provided in the form of Lovenox 40 mg subcu daily. Regular diet has been ordered. Activity will be allowed out of bed as tolerated with assist. Vital signs per unit protocol. Repeat labs in the morning. Above plan of care has been discussed with Dr. Watkins who will also see and evaluate this patient. History of Present Illness Chief Complaint: Hypoxia, weakness Primary Care Provider: EMILY Schwab Tomi Alexander is a 81-year-old elderly white male with a past medical history of hyper tension, hyperlipidemia, BPH who was seen in his primary care physician's office today, accompanied by his son, due to complaints of generalized weakness, several falls at home, poor appetite and weight loss. Evidently, patient has also been experiencing shortness of breath for the past month. Unfortunately, he is a poor historian and subsequently history is obtained through review of his primary care visits as well as his recent emergency department visit from 01/10/2022. Per his primary care provider's note, patient had Covid exposure approximately 1 month ago and developed cough, chills, and shortness of breath shortly thereafter. He did not seek Covid testing however since that time has had poor appetite, weight loss, worsening shortness of breath, increasing weakness and recent fall about a week ago. He also had acute onset of urinary retention on 01/10 which prompted a visit to the emergency department. During that visit, See catheter was placed and he was encouraged to follow up with urology. He has not yet done so, next appointment with urology is scheduled in April. Again, per documentation, patient was found to be hypoxic in the exam room of his primary care provider's office today with an oxygen saturation of 82% on room air which eventually recovered with some deep breaths to 93% on room air. EKG was performed in the office showing sinus tachycardia and his blood pressure was abnormally low for him at 102/64. Eventually, both the son and patient were agreeable to transfer to the emergency department for further work-up. In the ER this evening, patient noted to have an elevated white count of 14,500 with left shift. Radiologic evidence of groundglass bibasilar opacities consistent with viral pneumonia. Due to acute on chronic renal failure with a creatinine of 1.87 , contrast was not used for this CT. A UA was ordered but has not yet been collected. He tested positive for COVID-19 via rapid antigen testing. He claims to be fully vaccinated. He denies having booster shot. Patient is currently awake and alert but seems somewhat confused. He denies chest pain, shortness of breath at rest, N/V/D, fever, or chills. He does admit to soreness of his testicles and penis. Patient lives at home with his son, he is currently unaccompanied in the emergency department. In the ER, he was started on IV fluid hydration and was given a dose of Decadron. He will be admitted under the hospitalist service for further evaluation care. Allergies Allergy/AdvReac Type Severity Reaction Status Date / Time adhesive tape Allergy Intermediate REDDENED Verified 01/14/22 15:44 SKIN atorvastatin [From Lipitor] AdvReac Intermediate myalgias Verified 01/14/22 15:44 Home Medications Medication Instructions Recorded Confirmed Type cholecalciferol (vitamin D3) 50 2,000 units PO DAILY #90 cap 06/13/19 01/14/22 Rx mcg (2,000 unit) capsule atorvastatin 40 mg tablet 40 mg PO DAILY #90 tab 06/29/21 01/14/22 Rx lisinopril 10 mg tablet 10 mg PO DAILY #90 tab 06/29/21 01/14/22 Rx tamsulosin 0.4 mg capsule 0.4 mg PO DAILY #90 cap 06/29/21 01/14/22 Rx Past Med/Surg History Medical History GERD with apnea Hypertension Pain and swelling of left lower leg Surgical History History of cholecystectomy History of colonoscopy History of hernia repair No pertinent past surgical history Family History Mother Diabetes Other Hypertension Denies family history of Ovarian cancer Prostate cancer Myocardial infarction Breast cancer Colorectal cancer Social History Smoking Status: Former smoker Tobacco Type: Cigarettes Age Started Using Tobacco: 14; Age Quit Using Tobacco: 24; packs per day: 2; Second Hand Exposure: Yes (as child ); Hx Alcohol Use: Yes Hx Substance Use: No Preferred Language: Kazakh Communication Ability: Impaired Communication Ability Comment: pt confused Visual Impairment: No Limitations Hearing Ability: Use of Hearing Aid [employer] Required: No Beliefs That Will Affect Care: None marital status: / Current Living Situation: Family Current Living Situation Comment: pt confused current occupational status: 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 Denies weight loss/gain, fever and chills, fatigue, malaise. HEENT: (+) hard of hearing. Denies changes in vision. RESPIRATORY: (+) SOB, cough, No wheezing. CV: Denies palpitations, CP, lower extremity edema, orthopnea, PND. GI: Denies abdominal pain, nausea, vomiting and diarrhea. : (+) see and (+) penile, testicular soreness per pt. MUSCULOSKELETAL: Denies myalgia and joint pain. SKIN: Denies rash and pruritus. NEUROLOGICAL: Denies headache, syncope, focal weakness, numbness, tingling. PSYCHIATRIC: Denies recent changes in mood. Denies anxiety and depression. Physical Exam Physical Exam: GENERAL: 81 yo well-developed, well-nourished elderly WM. NAD. EYES: EOMI. PERRLA. Anicteric. HENT: Moist mucous membranes. No scleral icterus. No cervical lymphadenopathy. LUNGS: Good air exchange, nonlabored, bibasilar crackles. No wheezes or rhonchi appreciated. CARDIOVASCULAR: Regular rate and rhythm. No M/G/R. No JVD. ABDOMEN: Soft, non-tender and non-distended. BS normal x 4 quad. : see catheter in place, urine appears clear EXTREMITIES: No edema. Non-tender. Peripheral pulses +2/4. NEUROLOGIC: A&O x3. No focal neurological deficits. CN II-XII grossly intact. PSYCHIATRIC: Cooperative. Appropriate mood and affect. SKIN: Warm, dry, intact. No rashes or lesions. Groin excoriation noted in folds. Results & Data Results & Data ([facility]) Vital Signs (Past 12 Hours) Vital Signs Temp Pulse Pulse Resp BP BP Pulse Ox 01/14/22 18:00 86 18 131/79 93 01/14/22 15:00 99 H 19 106/83 93 01/14/22 13:49 37 C 119 H 20 128/84 91 Laboratory Results 01/14/22 14:42 01/14/22 14:42 Diagnostic Findings Chest X-Ray 01/14/22 13:55 XR chest 1V portable CLINICAL HISTORY: cough, shortness of breath COMPARISON STUDY: No previous studies for comparison. FINDINGS: Lung volumes are normal. No pneumothorax or pleural effusion is noted. Extensive bilateral airspace opacities are present. Cardiomegaly is noted. There is no evidence for pulmonary edema. IMPRESSION: Extensive bilateral airspace opacities which favor an infectious process such as viral pneumonia. Radiographic follow up to ensure resolution is recommended. ACT 112: Negative or not required by law. Electronically signed by: Kevin Palmer M.D. 01/14/2022 3:[address] 01/14/22 14:57 CT OF THE HEAD WITHOUT CONTRAST CLINICAL HISTORY: Altered mental status. COMPARISON STUDY: No previous studies for comparison. TECHNIQUE: Helical axial images of the head were obtained without IV contrast. Automated exposure control was utilized for the study. A dose lowering technique was utilized adhering to the principles of ALARA. FINDINGS: No acute intracranial hemorrhage, midline shift or mass effect is present. The ventricular system is unremarkable. The basal cisterns are patent. No extra-axial collections are present. White matter hypodensity suggests small vessel disease. There are no findings to suggest acute dural sinus thrombosis or acute territorial infarct. No significant calvarial abnormalities are present. Visualized portions of the sinuses and mastoid air cells are clear. IMPRESSION: No acute intracranial findings. ACT 112: Negative or not required by law. Electronically signed by: Kevin Palmer M.D. 01/14/2022 4:33 PM Abdomen/Pelvis CT 01/14/22 15:31 CT chest diagnostic wo con, CT abd pelvis wo con CT DOSE: 2468.85 mGy.cm CLINICAL HISTORY: 81 years-old Male with ams, hypoxia. Acute hypoxia with altered mental status. COVID Positive. Acute urinary tract infection TECHNIQUE: Multiaxial CT images of the chest, abdomen and pelvis were performed without contrast. A dose lowering technique was utilized adhering to the principles of ALARA. COMPARISON: Chest radiograph of same day, lumbar spine radiographs 02/03/2016 FINDINGS: CT CHEST: No large thyroid nodule. Mildly prominent subcentimeter subcarinal lymph nodes. The heart is upper limits of normal in size. Extensive coronary artery calcifications are noted along with calcifications of the aortic annulus and thoracic aortic arch. Mild fusiform dilation of the ascending thoracic aorta measures 4.2 x 4.1 cm. No pneumothorax, or pleural effusion. Extensive multifocal intermixed groundglass and consolidative opacities are noted within a multilobar and bibasilar predominant distribution. The central airways are patent. Unremarkable soft tissues. Degenerative changes of the shoulders and spine. CT ABDOMEN/PELVIS: No pneumatosis or pneumoperitoneum. The unenhanced spleen, pancreas, adrenal glands and liver appear unremarkable. Cholecystectomy. Mild nonspecific bilateral perinephric stranding. 1.5 cm cortical calcification of the interpolar left kidney. There is associated cortical thinning with parenchymal scarring within the area of calcification. No ureteral calculi or hydronephrosis. A See catheter is noted within a decompressed urinary bladder which demonstrates wall thickening. Prostamegaly. Small fat filled inguinal hernias. Atherosclerosis of the abdominal aorta without aneurysm. No adenopathy. Small hiatal hernia. No bowel obstruction or bowel wall thickening. Mild fecal retention. Noninflamed appendix. Prior ventral abdominal wall herniorrhaphy. Soft tissues are otherwise unremarkable. Degenerative changes of the spine, pelvis and hips. IMPRESSION: 1. Extensive bilateral mixed groundglass and consolidative opacities within a bibasilar prominent distribution are compatible with viral pneumonia. 2. Mild fusiform dilation of the ascending thoracic aorta, 4.2 x 4.1 cm. 3. No bowel obstruction or bowel wall thickening. Normal appendix. 4. Small hiatal hernia. 5. Prostamegaly with findings suggestive of chronic bladder outlet obstruction. 6. 1.5 cm left renal calcification. ACT 112: Negative or not required by law. Electronically signed by: Johnny Browning M.D. 01/14/2022 4:[address] 01/14/22 15:31 CT chest diagnostic wo con, CT abd pelvis wo con CT DOSE: 2468.85 mGy.cm CLINICAL HISTORY: 81 years-old Male with ams, hypoxia. Acute hypoxia with altered mental status. COVID Positive. Acute urinary tract infection TECHNIQUE: Multiaxial CT images of the chest, abdomen and pelvis were performed without contrast. A dose lowering technique was utilized adhering to the principles of ALARA. COMPARISON: Chest radiograph of same day, lumbar spine radiographs 02/03/2016 FINDINGS: CT CHEST: No large thyroid nodule. Mildly prominent subcentimeter subcarinal lymph nodes. The heart is upper limits of normal in size. Extensive coronary artery calcifications are noted along with calcifications of the aortic annulus and thoracic aortic arch. Mild fusiform dilation of the ascending thoracic aorta measures 4.2 x 4.1 cm. No pneumothorax, or pleural effusion. Extensive multifocal intermixed groundglass and consolidative opacities are noted within a multilobar and bibasilar predominant distribution. The central airways are patent. Unremarkable soft tissues. Degenerative changes of the shoulders and spine. CT ABDOMEN/PELVIS: No pneumatosis or pneumoperitoneum. The unenhanced spleen, pancreas, adrenal glands and liver appear unremarkable. Cholecystectomy. Mild nonspecific bilateral perinephric stranding. 1.5 cm cortical calcification of the interpolar left kidney. There is associated cortical thinning with parenchymal scarring within the area of calcification. No ureteral calculi or hydronephrosis. A See catheter is noted within a decompressed urinary bladder which demonstrates wall thickening. Prostamegaly. Small fat filled inguinal hernias. Atherosclerosis of the abdominal aorta without aneurysm. No adenopathy. Small hiatal hernia. No bowel obstruction or bowel wall thickening. Mild fecal retention. Noninflamed appendix. Prior ventral abdominal wall herniorrhaphy. Soft tissues are otherwise unremarkable. Degenerative changes of the spine, pelvis and hips. IMPRESSION: 1. Extensive bilateral mixed groundglass and consolidative opacities within a bibasilar prominent distribution are compatible with viral pneumonia. 2. Mild fusiform dilation of the ascending thoracic aorta, 4.2 x 4.1 cm. 3. No bowel obstruction or bowel wall thickening. Normal appendix. 4. Small hiatal hernia. 5. Prostamegaly with findings suggestive of chronic bladder outlet obstruction. 6. 1.5 cm left renal calcification. ACT 112: Negative or not required by law. Electronically signed by: Johnny Browning M.D. 01/14/2022 4:47 PM ECG Rate (beats per minute): 105 Rhythm: sinus tachycardia Code Status & VTE Plan VTE Prophylaxis Plan VTE Prophylaxis will be ordered: Yes Supervising Physician Co-Signing Physician Notes I personally saw and examined the patient. I verified all aguiar points and agree with Palak Meyer PA-C with the following exceptions and/or additions: 81 yo male admission for hypoxia and failure to thrive. Sent from PCP office today as felt not to be able to cope at home. Unclear symptom onset as patient unable to give me any history. O/E HS1+2, RRR, no murmurs, bibasal crackles but good air entry to bases. Abdo SNT. A/P COVID-19 - unclear how acute this is but suspect his ongoing failure to thrive is secondary to this. Given exposure and symptoms possibly a month ago clearly outside range for Remdesivir. Does not qualify for baricitinib based on O2 requirement. Dexamethasone given in ER, if O2 sats <94% tomorrow recommend continuing this given extent of changes on CT. Agree with covering for secondary bacterial infection in addition with ceftriaxone and azithromycin since he is suspected to be relatively far out from his original symptoms Hypoxia - Aim O2 sats > 90% PG Care Time/CCT Total # of Minutes Spent Total Time Spent with Patient: Total time spent is greater than 50% in coordination of care (as documented) at patient's floor/unit and/or counseling patient: Coding Level of Care Code 10899 Initial Inpt Care Lvl 3 Diagnoses COVID-19 U07.1 Failure to thrive Hypoxia R09.02 Generalized weakness R53.1 Acute urinary retention R33.8 Hypertension I10 Hypercholesterolemia E78.00 Leukocytosis D72.829 Acute on chronic renal failure N17.9; N18.9
[2022-01-14 18:52] LABS: Appearance Urine Clear (Clear); Bacteria Urine Automated 4+ (Negative); Bilirubin Urine Negative (Negative); Blood Urine 2+ (Negative); Color Urine Yellow; Epithelial Cell Urine Auto 0-5 /lpf (0-5); Glucose Urine UA Negative (Negative); Ketones Urine Negative (Negative); Leukocyte Esterase Urine 2+ (Negative); Nitrite Urine Positive (Negative); Specific Gravity Urine 1.019 (1.000-1.030); Urobilinogen Urine Negative (Negative); WBC Urine Automated >30 /hpf (0-5); pH Urine 7.5 (4.5-7.5)
[2022-01-14 19:01] LABS: Protein Urine 1+ (Negative)
[2022-01-14] MEDS: ALBUT/IPRATROP 3MG/0.5MG NEB 3 ML VIAL NEB SCH (19:37)
[2022-01-14] MEDS: NYSTATIN OINT 15 GM TUBE EXT SCH (20:25)
[2022-01-14] MEDS ORDERED: ALBUT/IPRATROP 3MG/0.5MG NEB 3 ML VIAL NEB PRN (23:08)
[2022-01-14] MEDS ORDERED: cefTRIAXone SODIUM 1,000 MG in DEXTROSE 5% 50 ML IV ONE (23:15)
[2022-01-14] MEDS: SODIUM CHLORIDE 0.9% 1000ML 1,000 ML IV SCH (23:28)
[2022-01-15] MEDS: ALBUT/IPRATROP 3MG/0.5MG NEB 3 ML VIAL NEB SCH ×4 (07:46→19:31)
[2022-01-15 07:59] LABS: Basophils # (auto) 0.01 K/uL (0-0.2); Basophils % (auto) 0.1 %; Eosinophils # (auto) 0.01 K/uL (0-0.5); Eosinophils % (auto) 0.1 %; Hemoglobin 14.5 g/dL (14.0-18.0); Immature Granulocytes # (auto) 0.03 K/uL (0.00-0.02); Immature Granulocytes % (auto) 0.3 %; Lymphocytes # (auto) 0.68 K/uL (1.2-3.4); Lymphocytes % (auto) 5.7 %; Mean Corpuscular Hemoglobin 31.5 pg (25-34); Mean Corpuscular Hgb Conc 33.7 g/dL (32-36); Mean Corpuscular Volume 93.3 fL (80-100); Mean Platelet Volume 10.5 fL (7.4-10.4); Monocytes # (auto) 0.89 K/uL (0.11-0.59); Monocytes % (auto) 7.5 %; Neutrophils # (auto) 10.28 K/uL (1.4-6.5); Neutrophils % (auto) 86.3 %; Platelet Count 217 K/uL (130-400); RDW Standard Deviation 47.8 fL (36.4-46.3); Red Blood Count 4.61 M/uL (4.7-6.1)
[2022-01-15 08:24] LABS: Albumin Globulin Ratio 0.9 (0.9-2); Albumin Level 3.1 gm/dl (3.4-5.0); BUN Creatinine Ratio 18.1 (10-20); Bilirubin,Total 0.6 mg/dl (0.2-1.0); Calcium 8.8 mg/dl (8.5-10.1); Creatinine Clr Calc Pharmacy 44.1 ml/min; Globulin 3.3 gm/dl (2.5-4.0); Magnesium 2.1 mg/dl (1.7-2.4); Potassium 4.9 mmol/L (3.5-5.1); Total Protein 6.4 gm/dl (6.0-8.3)
[2022-01-15] MEDS: SODIUM CHLORIDE 0.9% 1000ML 1,000 ML IV SCH (08:56)
[2022-01-15] MEDS: CHOLECALCIFEROL 1,000 UNITS 25 MCG TAB PO SCH (08:56)
[2022-01-15] MEDS: ASCORBIC ACID 500 MG TAB PO SCH (08:56)
[2022-01-15] MEDS: AZITHROMYCIN 250 MG TAB PO SCH (08:56)
[2022-01-15] MEDS ORDERED: NON-FORMULARY MEDICATION (Cholecalciferol (Vitamin D3) 2,000 unit capsule) PO SCH (09:00)
[2022-01-15] MEDS ORDERED: TAMSULOSIN HCL 0.4 MG CAP PO SCH (09:00)
[2022-01-15] MEDS: NYSTATIN OINT 15 GM TUBE EXT SCH ×2 (10:02→20:14)
[2022-01-15] MEDS: ENOXAPARIN INJ 40 MG/0.4 ML SYR SQ SCH (10:02)
--- NOTE | 2022-01-15 10:49 | Hospitalist Progress Note ---
Date of Service January 15, 2022 Assessment & Plan (1) COVID-19: Plan: Unclear as to the acuteness of this diagnosis given his symptom onset and exposure 1 month ago Unfortunately without previous positive, will need to initiate isolation from date of positive test Place in [facility] isolation precautions Currently 91% on rounds this AM but most recent pulse ox 86%, will resume Decadron 6mg IV daily x 9 more doses Outside of the window thus not a candidate for Remdesivir Initiate DuoNebs 4 times daily Vitamin C, zinc, Vitamin D supplementation Mucolytics, antitussives Empiric antibiotic coverage with Zithromax and Rocephin in the event of superimposed bacterial pneumonia (2) Acute UTI: Plan: Grossly infected urinalysis Urine culture pending, preliminary gram-negative bacilli Continue empiric Rocephin, await culture data and tailor abx accordingly Hydrated with fluids overnight, will cap fluids today Suspect that this is contributing to his confusion, generalized weakness, and recent fall (3) Leukocytosis: Plan: Secondary to UTI, downtrending Continue antibiotics as outlined above (4) Hypoxia: Plan: Transient, initially on rounds this AM 91% but most recent pulse ox 86% Utilize supplemental oxygen as needed for SPO2 less than 90% Patient does have a history of smoking, uncertain what his baseline pulse ox is We will resume Decadron as outlined above (5) Acute on chronic renal failure: Plan: Status post hydration overnight Appears that his renal function is back to his baseline Will stop IV fluids at this time Can resume lisinopril (6) Failure to thrive: Plan: Suspect that this is related to his Covid diagnosis PT/OT eval Dietitian consult, may benefit from nutritional supplements Case management consult for discharge planning, may require rehab upon discharge (7) Acute urinary retention: Plan: Maintain See catheter, urine grossly infected as outlined above Continue Flomax (8) Generalized weakness: Plan: As above (9) Hypertension: Plan: Can resume Lisinopril at this time (held on admit d/t KRISTIE on CKD) Presently blood pressure acceptable range (10) Hypercholesterolemia: Plan: AST mildly elevated we will hold statin therapy for now Improving Plan: Interventions as outlined above. PT/OT, case management consult for discharge planning. DVT prophylaxis: Lovenox 40 mg subcu daily. Repeat labs tomorrow in AM. Admission and Anticipated Discharge Date Admission Date: January 14, 2022 Subjective Patient seen on daily rounds morning. Patient told me yesterday that he was fully vaccinated but when I asked him again today, he states that he is not vaccinated. He only c/o cough, nonproductive, denies fever, chills, chest pain. Review of Systems Review of Systems: CONSTITUTIONAL: (+) generalized weakness w/ recent falls. Denies weight loss/gain, fever and chills, fatigue, malaise. HEENT: (+) hard of hearing. Denies changes in vision. RESPIRATORY: (+) SOB, cough, No wheezing. CV: Denies palpitations, CP, lower extremity edema, orthopnea, PND. GI: Denies abdominal pain, nausea, vomiting and diarrhea. : (+) see and (+) penile, testicular soreness per pt. MUSCULOSKELETAL: Denies myalgia and joint pain. SKIN: Denies rash and pruritus. NEUROLOGICAL: Denies headache, syncope, focal weakness, numbness, tingling. PSYCHIATRIC: Denies recent changes in mood. Denies anxiety and depression. Physical Exam Physical Exam: GENERAL: 81 yo well-developed, well-nourished elderly WM. NAD. LUNGS: Good air exchange, nonlabored, bibasilar crackles. CARDIOVASCULAR: Regular rate and rhythm. No M/G/R. No JVD. ABDOMEN: Soft, non-tender and non-distended. BS normal x 4 quad. : see catheter in place EXTREMITIES: No edema. Non-tender. Peripheral pulses +2/4. NEUROLOGIC: A&O x3. PSYCHIATRIC: Cooperative. Appropriate mood and affect. SKIN: Warm, dry, intact. No rashes or lesions. Groin excoriation noted in folds. Results & Data Results & Data ([facility]) Vital Signs (Past 12 Hours) Vital Signs Temp Pulse Resp BP Pulse Ox 01/15/22 08:20 36.6 C 86 18 142/83 H 91 01/15/22 07:48 71 94 Laboratory Results 01/15/22 06:42 01/15/22 06:42 PG Care Time/CCT Total # of Minutes Spent Total Time Spent with Patient: Total time spent is greater than 50% in coordination of care (as documented) at patient's floor/unit and/or counseling patient: Coding Level of Care Code 75279 Subseq Hosp Care Lvl 3 Diagnoses COVID-19 U07.1 Leukocytosis D72.829 Hypoxia R09.02 Acute on chronic renal failure N17.9; N18.9 Failure to thrive Generalized weakness R53.1 Acute urinary retention R33.8 Hypertension I10 Hypercholesterolemia E78.00 Acute UTI N39.0
[2022-01-15] MEDS: lisinopril 10 MG TAB PO SCH (12:10)
[2022-01-15] MEDS: dexAMETHasone 6 MG in SYRINGE 0 ML IV SCH (12:10)
[2022-01-15] MEDS: ZINC SULFATE 220 MG CAPSULE PO SCH (12:10)
[2022-01-15] MEDS: TAMSULOSIN HCL 0.4 MG CAP PO SCH (16:37)
[2022-01-15] MEDS: guaiFENesin 600 MG TABCR PO SCH (20:12)
[2022-01-15] MEDS: cefTRIAXone SODIUM 2,000 MG in DEXTROSE 5% 50 ML IV SCH (22:45)
[2022-01-16] MEDS: ALBUT/IPRATROP 3MG/0.5MG NEB 3 ML VIAL NEB SCH ×2 (07:15→11:03)
[2022-01-16] MEDS: CHOLECALCIFEROL 1,000 UNITS 25 MCG TAB PO SCH (08:47)
[2022-01-16] MEDS: ASCORBIC ACID 500 MG TAB PO SCH (08:47)
[2022-01-16] MEDS: guaiFENesin 600 MG TABCR PO SCH ×2 (08:47→20:56)
[2022-01-16] MEDS: lisinopril 10 MG TAB PO SCH (08:47)
[2022-01-16] MEDS: ZINC SULFATE 220 MG CAPSULE PO SCH (08:47)
[2022-01-16] MEDS: AZITHROMYCIN 250 MG TAB PO SCH (08:47)
[2022-01-16] MEDS: ENOXAPARIN INJ 40 MG/0.4 ML SYR SQ SCH (08:48)
[2022-01-16] MEDS: NYSTATIN OINT 15 GM TUBE EXT SCH ×2 (08:48→20:57)
[2022-01-16 08:51] LABS: Basophils # (auto) 0.01 K/uL (0-0.2); Basophils % (auto) 0.1 %; Eosinophils # (auto) 0.02 K/uL (0-0.5); Eosinophils % (auto) 0.1 %; Hematocrit (blood only) 42.4 % (42-52); Immature Granulocytes # (auto) 0.04 K/uL (0.00-0.02); Immature Granulocytes % (auto) 0.3 %; Lymphocytes # (auto) 1.35 K/uL (1.2-3.4); Lymphocytes % (auto) 9.4 %; Mean Corpuscular Volume 93.8 fL (80-100); Mean Platelet Volume 10.4 fL (7.4-10.4); Monocytes # (auto) 1.24 K/uL (0.11-0.59); Monocytes % (auto) 8.7 %; Neutrophils # (auto) 11.63 K/uL (1.4-6.5); Neutrophils % (auto) 81.4 %; Platelet Count 225 K/uL (130-400); Red Blood Count 4.52 M/uL (4.7-6.1); White Blood Count 14.29 K/uL (4.8-10.8)
[2022-01-16 09:14] LABS: Albumin Level 3.1 gm/dl (3.4-5.0); BUN Creatinine Ratio 17.6 (10-20); Bilirubin,Total 0.6 mg/dl (0.2-1.0); Calcium 8.8 mg/dl (8.5-10.1); Creatinine Clr Calc Pharmacy 46.3 ml/min; Est GFR (African American) 54.1 ml/min; Est GFR (Non-African American) 46.6 ml/min; Globulin 3.2 gm/dl (2.5-4.0); Potassium 4.4 mmol/L (3.5-5.1); Total Protein 6.3 gm/dl (6.0-8.3)
[2022-01-16] MEDS: dexAMETHasone 6 MG in SYRINGE 0 ML IV SCH (12:04)
--- NOTE | 2022-01-16 13:51 | Hospitalist Progress Note ---
Date of Service January 16, 2022 Assessment & Plan (1) COVID-19: Plan: * Unclear as to the acuteness of this diagnosis given his symptom onset and exposure 1 month ago * Unfortunately without previous positive, will need to initiate isolation from date of positive test--continue Covid isolation precautions * mild hypoxemia noted (initially 82% on RA)--back and forth from RA to 2L supplemental O2 * CT of the chest showing extensive groundglass opacities compatible with viral PNA * continue Decadron day #2 * Outside of the window thus not a candidate for Remdesivir * continue neb treatments * continue Vitamin C, zinc, Vitamin D supplementation * continue Mucolytics, antitussives * continue Empiric antibiotic coverage with Zithromax and Rocephin in the event of superimposed bacterial pneumonia (but not highly suspicious of this) (2) Acute UTI: Plan: * urine culture growing pansensitive serratia * this could have been contributing to his symptoms of generalized weakness * Continue empiric Rocephin (has received 2 doses, could consider stopped after 3 for uncomplicated UTI) (3) Leukocytosis: Plan: * was 14.48 upon arrival (likely from UTI and Covid) * did improve but uptrending (which is now likely steroid induced) (4) Acute on chronic renal failure: Plan: * presenting Cr 1.8. * thought to be s/s dehydration given poor oral intake * improved with IVF (back to baseline (1.4) * lisinopril held upfront but has since been resumed (5) Failure to thrive: Plan: * Suspect that this is related to his Covid diagnosis * PT/OT --> recommending rehab * surfacer consulted and added carnation supplements * Case management consult for discharge planning- appreciate assistance (6) Acute urinary retention: Plan: * see catheter placed * patient with underlying BPH and concurrent UTI (which is likely contributing) * Continue Flomax * remove see in am for PVT and if fails, would reinsert see, add proscar and refer to urology upon D/C (7) Generalized weakness: Plan: * As above (8) Hypertension: Plan: * Lisinopril resumed (held on admit d/t KRISTIE on CKD) * BP currently 110/67 (9) Hypercholesterolemia: Plan: * AST mildly elevated for which his statin is on hold (this could be related to Covid) Plan: Interventions as outlined above. PT/OT, case management consult for discharge planning. DVT prophylaxis: Lovenox 40 mg subcu daily. plan of care to be D/W Dr. Phillips. Further orders as warranted Admission and Anticipated Discharge Date Admission Date: January 14, 2022 Subjective Patient seen on daily rounds today. Vocalizes no c/c. Denies F/C. CP, SOB, abd pain, N/V. Nursing voices no c/c. Review of Systems Review of Systems: All systems reviewed and are unremarkable except as noted in HPI and below Denies fevers, chills, headache, nasal congestion, sore throat, cough, chest pain, shortness of breath, palpitations, orthopnea, PND, abdominal pain, nausea, vomiting, diarrhea, constipation, dysuria, hematuria, frequency, back pain, joint pain or swelling, easy bruising or bleeding, skin lesions or rashes. Physical Exam Physical Exam: General: Resting comfortably in his hospital bed. NAD. HEENT: Head is AT/NC. Buccal mucosa is moist and pink Neck: No JVD. Negative hepatojugular reflex Cardiac: RRR without M/G/R Lungs: Speaking full sentences on supplemental oxygen. Normal respiratory effort. Diminished breath sounds without W/R/R Abdomen: Normoactive X4. Soft and nontender in all quadrants. Extremities: No peripheral clubbing cyanosis or edema Neuro: A&O X4. Cranial nerves II through XII are grossly intact. No focal neuro deficits Skin: No obvious skin lesions or rashes Psych: Appropriate affect. Pleasant and cooperative Results & Data Results & Data ([facility]) Vital Signs (Past 12 Hours) Vital Signs Temp Pulse Resp BP Pulse Ox 01/16/22 11:03 58 L 18 92 01/16/22 11:00 36.4 C L 102 H 18 110/67 96 01/16/22 07:34 36.5 C 84 16 116/67 96 01/16/22 07:15 54 L 18 92 01/16/22 03:09 36.6 C 72 18 107/62 90 Laboratory Results 01/16/22 08:28 01/16/22 08:28 PG Care Time/CCT Total # of Minutes Spent Total Time Spent with Patient: Total time spent is greater than 50% in coordination of care (as documented) at patient's floor/unit and/or counseling patient: Coding Level of Care Code 72743 Subseq Hosp Care Lvl 2 Diagnoses COVID-19 U07.1 Acute UTI N39.0 Leukocytosis D72.829 Acute on chronic renal failure N17.9; N18.9 Failure to thrive Acute urinary retention R33.8 Generalized weakness R53.1 Hypertension I10 Hypercholesterolemia E78.00
[2022-01-16] MEDS ORDERED: ALBUT/IPRATROP 3MG/0.5MG NEB 3 ML VIAL NEB PRN (13:56)
[2022-01-16] MEDS: TAMSULOSIN HCL 0.4 MG CAP PO SCH (17:25)
[2022-01-16] MEDS: cefTRIAXone SODIUM 2,000 MG in DEXTROSE 5% 50 ML IV SCH (21:08)
[2022-01-17] MEDS: BENZONATATE 100 MG CAPSULE PO PRN (01:08)
[2022-01-17] MEDS: AZITHROMYCIN 250 MG TAB PO SCH (09:13)
[2022-01-17] MEDS: lisinopril 10 MG TAB PO SCH (09:13)
[2022-01-17] MEDS: ZINC SULFATE 220 MG CAPSULE PO SCH (09:13)
[2022-01-17] MEDS: ASCORBIC ACID 500 MG TAB PO SCH (09:13)
[2022-01-17 09:14] LABS: Creatinine Clr Calc Pharmacy 45.3 ml/min; Est GFR (African American) 52.7 ml/min; Est GFR (Non-African American) 45.5 ml/min
[2022-01-17] MEDS: guaiFENesin 600 MG TABCR PO SCH ×2 (09:14→21:46)
[2022-01-17] MEDS: ENOXAPARIN INJ 40 MG/0.4 ML SYR SQ SCH (09:14)
[2022-01-17] MEDS: NYSTATIN OINT 15 GM TUBE EXT SCH ×2 (09:14→21:51)
[2022-01-17] MEDS: CHOLECALCIFEROL 1,000 UNITS 25 MCG TAB PO SCH (09:14)
--- NOTE | 2022-01-17 09:18 | Hospitalist Progress Note ---
Date of Service January 17, 2022 Assessment & Plan (1) COVID-19: Plan: * Unclear as to the acuteness of this diagnosis given his symptom onset and exposure 1 month ago * Unfortunately without previous positive, will need to initiate isolation from date of positive test--continue Covid isolation precautions * mild hypoxemia noted (initially 82% on RA)--back and forth from RA to 2L supplemental O2. 93% on RA today * CT of the chest showing extensive groundglass opacities compatible with viral PNA * continue Decadron day #3 * Outside of the window thus not a candidate for Remdesivir * continue neb treatments * continue Vitamin C, zinc, Vitamin D supplementation * continue Mucolytics, antitussives * continue Empiric antibiotic coverage with Zithromax and Rocephin in the event of superimposed bacterial pneumonia (but not highly suspicious of this) (2) Acute UTI: Plan: * urine culture growing pansensitive serratia * this could have been contributing to his symptoms of generalized weakness along with his urinary retention (? prostatitis) * Did require See catheter upfront but has since been removed and voiding without difficulty * Continue empiric Rocephin (3 doses). Initially was planning to treat X 3 days for uncomplicated UTI; however,upon further questioning-- does report mild pain at the base of the penis with BM-- there is concern for associated prostatitis. Will transition to oral Cipro (watching closely given risk of confusion in elderly) x21 days given concern of associated prostatitis (3) Leukocytosis: Plan: * was 14.48 upon arrival (likely from UTI and Covid) * did improve but uptrending (which is now likely steroid induced) as clinical improvement noted. (4) Acute on chronic renal failure: Plan: * presenting Cr 1.8. * thought to be s/s dehydration given poor oral intake * improved with IVF (back to baseline -1.4) * lisinopril held upfront but has since been resumed (5) Failure to thrive: Plan: * Suspect that this is related to his Covid diagnosis * PT/OT --> recommending rehab * oil pipe inspector consulted and added carnation supplements * Case management consult for discharge planning- appreciate assistance * Lengthy discussion with patient regarding rehab; however, he is not exactly agreeable to that at this time. He claims he will think about it. Discussed that he is at a point where he does not need to remain in the hospital medically but if the plan is to proceed with discharge, we need to start making referrals. Spoke to CM regarding this (who plans on talking with the patient) (6) Acute urinary retention: Plan: * see catheter placed * patient with underlying BPH and concurrent UTI/?prostatitis (which is likely contributing) * Continue Flomax * See removed and no issues with voiding thus far-- continue to monitor (7) Hypertension: Plan: * Lisinopril resumed (held on admit d/t KRISTIE on CKD) * BP currently 144/81 * renal function improved-- resume lisinopril (8) Hypercholesterolemia: Plan: * AST mildly elevated for which his statin is on hold (this could be related to Covid) * FU labs in am Plan: PT/OT recommending rehab-- pt not refusing but not agreeable either. frandy childs-- CM working on this plan of care to be D/W Dr. Phillips. Further orders as warranted Admission and Anticipated Discharge Date Admission Date: January 14, 2022 Subjective Patient seen on daily rounds today. Vocalizes no c/c. Denies F/C, CP, SOB, abd pain, N/V, D. Good Appetite. Moving bowel and bladder without difficulty. No Supplemental O2 needed at this time. Denies feeling SOB at rest or with limited exertion (such as toileting) Nursing voices no c/c. Review of Systems Review of Systems: All systems reviewed and are unremarkable except as noted in HPI and below Denies fevers, chills, headache, nasal congestion, sore throat, cough, chest pain, shortness of breath, palpitations, orthopnea, PND, abdominal pain, nausea, vomiting, diarrhea, constipation, dysuria, hematuria, frequency, back pain, joint pain or swelling, easy bruising or bleeding, skin lesions or rashes. Physical Exam Physical Exam: General: Resting comfortably in his hospital bed. NAD. HEENT: Head is AT/NC. Buccal mucosa is moist and pink Neck: No JVD. Negative hepatojugular reflex Cardiac: RRR without M/G/R Lungs: Speaking full sentences on ambient air. Normal respiratory effort. Diminished breath sounds without W/R/R Abdomen: Normoactive X4. Soft and nontender in all quadrants. Extremities: No peripheral clubbing cyanosis or edema Neuro: A&O X4. Cranial nerves II through XII are grossly intact. No focal neuro deficits Skin: No obvious skin lesions or rashes Psych: Appropriate affect. Pleasant and cooperative Results & Data Results & Data ([facility]) Vital Signs (Past 12 Hours) Vital Signs Temp Pulse Resp BP Pulse Ox 01/17/22 07:00 36.5 C 74 18 144/81 H 93 PG Care Time/CCT Total # of Minutes Spent Total Time Spent with Patient: Total time spent is greater than 50% in coordination of care (as documented) at patient's floor/unit and/or counseling patient: Coding Level of Care Code 94469 Subseq Hosp Care Lvl 2 Diagnoses COVID-19 U07.1 Acute UTI N39.0 Leukocytosis D72.829 Acute on chronic renal failure N17.9; N18.9 Failure to thrive Acute urinary retention R33.8 Hypertension I10 Hypercholesterolemia E78.00
[2022-01-17] MEDS: dexAMETHasone 6 MG in SYRINGE 0 ML IV SCH (12:43)
[2022-01-17] MEDS: TAMSULOSIN HCL 0.4 MG CAP PO SCH (17:09)
[2022-01-17] MEDS: CIPROFLOXACIN 500 MG TAB PO SCH (21:46)
[2022-01-18] MEDS: ZINC SULFATE 220 MG CAPSULE PO SCH (08:03)
[2022-01-18] MEDS: lisinopril 10 MG TAB PO SCH (08:04)
[2022-01-18] MEDS: AZITHROMYCIN 250 MG TAB PO SCH (08:04)
[2022-01-18] MEDS: CHOLECALCIFEROL 1,000 UNITS 25 MCG TAB PO SCH (08:04)
[2022-01-18] MEDS: guaiFENesin 600 MG TABCR PO SCH ×2 (08:05→21:11)
[2022-01-18] MEDS: CIPROFLOXACIN 500 MG TAB PO SCH ×2 (08:05→21:11)
[2022-01-18] MEDS: ENOXAPARIN INJ 40 MG/0.4 ML SYR SQ SCH (08:05)
[2022-01-18] MEDS: ASCORBIC ACID 500 MG TAB PO SCH (08:05)
[2022-01-18] MEDS: NYSTATIN OINT 15 GM TUBE EXT SCH ×2 (08:06→21:11)
[2022-01-18 08:19] LABS: Eosinophils # (auto) 0.03 K/uL (0-0.5); Eosinophils % (auto) 0.2 %; Hematocrit (blood only) 43.2 % (42-52); Hemoglobin 14.8 g/dL (14.0-18.0); Immature Granulocytes # (auto) 0.07 K/uL (0.00-0.02); Immature Granulocytes % (auto) 0.5 %; Lymphocytes # (auto) 1.54 K/uL (1.2-3.4); Lymphocytes % (auto) 11.3 %; Mean Corpuscular Hemoglobin 31.5 pg (25-34); Mean Corpuscular Hgb Conc 34.3 g/dL (32-36); Mean Corpuscular Volume 91.9 fL (80-100); Mean Platelet Volume 10.3 fL (7.4-10.4); Monocytes # (auto) 1.21 K/uL (0.11-0.59); Monocytes % (auto) 8.9 %; Neutrophils # (auto) 10.79 K/uL (1.4-6.5); Neutrophils % (auto) 79.1 %; Platelet Count 259 K/uL (130-400); RDW Coefficient of Variation 13.9 % (11.5-14.5); RDW Standard Deviation 47.2 fL (36.4-46.3); White Blood Count 13.64 K/uL (4.8-10.8)
[2022-01-18 08:49] LABS: Albumin Level 3.1 gm/dl (3.4-5.0); BUN Creatinine Ratio 22.6 (10-20); Bilirubin,Total 0.6 mg/dl (0.2-1.0); Calcium 8.6 mg/dl (8.5-10.1); Creatinine Clr Calc Pharmacy 41.3 ml/min; Est GFR (African American) 47.2 ml/min; Est GFR (Non-African American) 40.7 ml/min; Globulin 3.1 gm/dl (2.5-4.0); Potassium 4.2 mmol/L (3.5-5.1); Total Protein 6.2 gm/dl (6.0-8.3)
[2022-01-18] MEDS ORDERED: lisinopril 10 MG TAB PO SCH (09:00)
[2022-01-18] MEDS: dexAMETHasone 6 MG in SYRINGE 0 ML IV SCH (12:51)
--- NOTE | 2022-01-18 13:55 | Hospitalist Progress Note ---
Date of Service January 18, 2022 Assessment & Plan (1) COVID-19: Plan: * Unclear as to the acuteness of this diagnosis given his symptom onset and exposure 1 month ago * Unfortunately without previous positive, will need to initiate isolation from date of positive test--continue Covid isolation precautions * mild hypoxemia noted (initially 82% on RA)--back and forth from RA to 2L supplemental O2. * CT of the chest showing extensive groundglass opacities compatible with viral PNA * continue Decadron day #4 * Outside of the window thus not a candidate for Remdesivir * continue neb treatments * continue Vitamin C, zinc, Vitamin D supplementation * continue Mucolytics, antitussives * completed Empiric antibiotic coverage with Zithromax / Rocephin in the event of superimposed bacterial pneumonia (but not highly suspicious of this) (2) Acute UTI: Plan: * urine culture growing pansensitive serratia * this could have been contributing to his symptoms of generalized weakness a long with his urinary retention (? prostatitis) * Did require See catheter upfront but has since been removed and voiding without difficulty * On empiric Rocephin upfront(3 doses). Initially was planning to treat X 3 days for uncomplicated UTI; however,upon further questioning-- did report mild pain at the base of the penis with BM--?prostatitis. * has since been transitioned to oral Cipro (watching closely given risk of confusion in elderly) x21 days given concern of associated prostatitis (3) Leukocytosis: Plan: * was 14.48 upon arrival (likely from UTI and Covid) * did improve but uptrending (which is now likely steroid induced) as clinical improvement noted. (4) Acute on chronic renal failure: Plan: * presenting Cr 1.8. * thought to be s/s dehydration given poor oral intake * improved with IVF (back to baseline -1.4) * lisinopril held upfront but has since been resumed * Cr. uptrending again- slightly (1.5). Likely steroid induced. If continues to rise, will need to reconsider steroids and some IVF. (5) Failure to thrive: Plan: * Suspect that this is related to his Covid diagnosis * PT/OT --> recommending rehab. ob board. Referral out to [facility] but they are requesting patient remain in isolation until 3/5 (10 days from the positive test) prior to them taking patient * evaluation assistant consulted and added carnation supplements * Case management consult for discharge planning- appreciate assistance (6) Acute urinary retention: Plan: * see catheter placed initially * patient with underlying BPH and concurrent UTI/?prostatitis (which is likely contributing) * Continue Flomax * See removed and no issues with voiding thus far-- continue to monitor (7) Hypertension: Plan: * Lisinopril resumed (held on admit d/t KRISTIE on CKD) * BP currently 124/65 (8) Hypercholesterolemia: Plan: * AST/ALT mildly elevated for which his statin is on hold (this could be related to Covid) * continue to monitor Plan: PT/OT recommending rehab-- referral to [facility]. Need to complete 10 days isolation (10 days from day of test) plan of care to be D/W Dr. Phillips. Further orders as warranted Admission and Anticipated Discharge Date Admission Date: January 14, 2022 Subjective Patient seen on daily rounds today. Denies F/C, CP, SOB, abd pain, N/V. Denies significant weakness but staff reports still weak. Agreeable to rehab at this time (however, not happy about it) Review of Systems Review of Systems: All systems reviewed and are unremarkable except as noted in HPI and below Denies fevers, chills, headache, nasal congestion, sore throat, cough, chest pain, shortness of breath, palpitations, orthopnea, PND, abdominal pain, nausea, vomiting, diarrhea, constipation, dysuria, hematuria, frequency, back pain, joint pain or swelling, easy bruising or bleeding, skin lesions or rashes. Physical Exam Physical Exam: General: Resting comfortably in his hospital bed. NAD. HEENT: Head is AT/NC. Buccal mucosa is moist and pink Neck: No JVD. Negative hepatojugular reflex Cardiac: RRR without M/G/R Lungs: Speaking full sentences on ambient air. Normal respiratory effort. Diminished breath sounds without W/R/R Abdomen: Normoactive X4. Soft and nontender in all quadrants. Extremities: No peripheral clubbing cyanosis or edema Neuro: A&O X4. Cranial nerves II through XII are grossly intact. No focal neuro deficits Skin: No obvious skin lesions or rashes Psych: Appropriate affect. Pleasant and cooperative Results & Data Results & Data ([facility]) Vital Signs (Past 12 Hours) Vital Signs Temp Pulse Resp BP Pulse Ox 01/18/22 08:21 35.8 C L 97 H 18 124/65 89 L Laboratory Results 01/18/22 07:40 01/18/22 07:40 PG Care Time/CCT Total # of Minutes Spent Total Time Spent with Patient: Total time spent is greater than 50% in coordination of care (as documented) at patient's floor/unit and/or counseling patient: Coding Level of Care Code 04706 Subseq Hosp Care Lvl 2 Diagnoses COVID-19 U07.1 Acute UTI N39.0 Leukocytosis D72.829 Acute on chronic renal failure N17.9; N18.9 Failure to thrive Acute urinary retention R33.8 Hypertension I10 Hypercholesterolemia E78.00
[2022-01-18] MEDS: TAMSULOSIN HCL 0.4 MG CAP PO SCH (16:06)
[2022-01-19 08:10] LABS: Basophils # (auto) 0.01 K/uL (0-0.2); Basophils % (auto) 0.1 %; Eosinophils # (auto) 0.05 K/uL (0-0.5); Eosinophils % (auto) 0.4 %; Hematocrit (blood only) 46.5 % (42-52); Hemoglobin 15.9 g/dL (14.0-18.0); Immature Granulocytes # (auto) 0.12 K/uL (0.00-0.02); Immature Granulocytes % (auto) 0.9 %; Lymphocytes # (auto) 1.46 K/uL (1.2-3.4); Lymphocytes % (auto) 11.2 %; Mean Corpuscular Hemoglobin 31.6 pg (25-34); Mean Corpuscular Hgb Conc 34.2 g/dL (32-36); Mean Corpuscular Volume 92.4 fL (80-100); Mean Platelet Volume 10.8 fL (7.4-10.4); Monocytes % (auto) 10.8 %; Neutrophils # (auto) 9.97 K/uL (1.4-6.5); Neutrophils % (auto) 76.6 %; Platelet Count 263 K/uL (130-400); RDW Coefficient of Variation 14.1 % (11.5-14.5); RDW Standard Deviation 47.2 fL (36.4-46.3); Red Blood Count 5.03 M/uL (4.7-6.1); White Blood Count 13.01 K/uL (4.8-10.8)
[2022-01-19 08:43] LABS: Albumin Level 3.3 gm/dl (3.4-5.0); BUN Creatinine Ratio 25.2 (10-20); Bilirubin,Total 0.6 mg/dl (0.2-1.0); Calcium 8.9 mg/dl (8.5-10.1); Creatinine Clr Calc Pharmacy 40.3 ml/min; Est GFR (African American) 45.8 ml/min; Est GFR (Non-African American) 39.5 ml/min; Globulin 3.3 gm/dl (2.5-4.0); Magnesium 2.1 mg/dl (1.7-2.4); Potassium 4.4 mmol/L (3.5-5.1); Total Protein 6.6 gm/dl (6.0-8.3)
--- NOTE | 2022-01-19 09:52 | Hospitalist Progress Note ---
Date of Service January 19, 2022 Assessment & Plan (1) COVID-19: Plan: * Unclear as to the acuteness of this diagnosis given his symptom onset and exposure 1 month ago * Unfortunately without previous positive, will need to initiate isolation from date of positive test--continue Covid isolation precautions * mild hypoxemia noted (initially 82% on RA)--back and forth from RA to 2L supplemental O2. * CT of the chest showing extensive groundglass opacities compatible with viral PNA * Received 5 doses of Decadron but now with increasing renal impairment, do not believe the benefit outweighs the risks (No respiratory symptoms and off O2 today) * Outside of the window thus not a candidate for Remdesivir * continue neb treatments prn * continue Vitamin C, zinc, Vitamin D supplementation * continue Mucolytics, antitussives * completed Empiric antibiotic coverage with Zithromax / Rocephin in the event of superimposed bacterial pneumonia (but not highly suspicious of this) (2) Acute UTI: Plan: * urine culture growing pansensitive serratia * likely contributing to his symptoms of generalized weakness along with his urinary retention (? prostatitis) * Did require See catheter upfront but has since been removed and voiding without difficulty * On empiric Rocephin upfront(3 doses). Initially was planning to treat X 3 days for uncomplicated UTI; however,upon further questioning-- did report mild pain at the base of the penis with BM--?prostatitis. * has since been transitioned to oral Cipro (watching closely given risk of confusion in elderly) x21 days given concern of associated prostatitis. Tolerating this without issues (3) Acute urinary retention: Plan: * see catheter placed initially * patient with underlying BPH and concurrent UTI/?prostatitis (which is likely contributing) * Continue Flomax * See removed and no issues with voiding thus far-- continue to monitor (4) Leukocytosis: Plan: * was 14.48 upon arrival (likely from UTI and Covid) * did improve but uptrending (which is now likely steroid induced) as clinical improvement noted * continue to monitor (susy with discontinuation of steroids) (5) Acute on chronic renal failure: Plan: * presenting Cr 1.8. * thought to be s/s dehydration given poor oral intake * baseline unclear as had been 1.4 - 1.8 since 2017 with review of records * improved with IVF (1.4) * lisinopril held upfront but has since been resumed * Cr. uptrending again- now 1.6. Likely steroid induced--> at this point, he has received 5 doses of Decadron and I do not believe the benefit of 5 additional doses outweighs the risk. Stop Decadron and continue to trend renal function. Will provide gentle IV hydration today (6) Failure to thrive: Plan: * Suspect that this is related to his Covid diagnosis * PT/OT --> recommending rehab. ob board. Referral out to [facility] but they are requesting patient remain in isolation until 01/23 (10 days from the positive test) prior to them taking patient * educational adviser consulted and added carnation supplements * Case management consult for discharge planning- appreciate assistance (7) Transaminitis: Plan: * Total bilirubin has remained normal (0.6) * AST/ALT slightly elevated at 46 and 89 * Suspect Covid related * Hepatotoxic agents on hold (including statin). Would advise a 2-week drug holiday with continued monitoring * If significant/continued elevation, would obtain further labs and right upper quadrant ultrasound (8) Elevated troponin: Plan: * Troponin of 0.05 upon presentation (only slight elevated as reference range 0.0 - 0.04) * Had no reports of chest pain or EKG changes * Was not trended * Since I have met this patient on 01/16-- he has not had any cardiac complaints * No further work-up at this time (9) Hypertension: Plan: * Lisinopril resumed (held on admit d/t KRISTIE on CKD) * BP currently 124/65 * Creatinine currently 1.6. If continues to climb, would be so inclined as to discontinue SHERYL inhibitor and transition to nonrenally excreted antihypertensive agent (10) Hypercholesterolemia: Plan: * AST/ALT mildly elevated for which his statin is on hold (this could be related to Covid) * continue to monitor Plan: PT/OT recommending rehab-- referral to [facility]. Need to complete 10 days isolation (10 days from day of test) plan of care to be D/W Dr. Reddy. Further orders as warranted Admission and Anticipated Discharge Date Admission Date: January 14, 2022 Supervising Physician Co-Signing Physician Notes Attending Attestation - Chart reviewed, care plan d/w MIKAL Pedersen. I agree with the aguiar components of her documentation. Tigre Reddy MD Subjective Patient seen on daily rounds today. Vocalizes no complaints or concerns. Feeling well. Denies fevers, chills, chest pain, shortness of breath, abdominal pain, nausea or vomiting. Still requiring up to 2 L intermittently of supplemental oxygen but [id number] from O2 to room air. Nursing voices no complaints or concerns. Review of Systems Review of Systems: All systems reviewed and are unremarkable except as noted in HPI and below Denies fevers, chills, headache, nasal congestion, sore throat, cough, chest pain, shortness of breath, palpitations, orthopnea, PND, abdominal pain, nausea, vomiting, diarrhea, constipation, dysuria, hematuria, frequency, back pain, joint pain or swelling, easy bruising or bleeding, skin lesions or rashes. Physical Exam Physical Exam: General: Resting comfortably in his hospital bed. NAD. HEENT: Head is AT/NC. Buccal mucosa is moist and pink Neck: No JVD. Negative hepatojugular reflex Cardiac: RRR without M/G/R Lungs: Speaking full sentences on ambient air. Normal respiratory effort. Diminished breath sounds without W/R/R Abdomen: Normoactive X4. Soft and nontender in all quadrants. Extremities: No peripheral clubbing cyanosis or edema Neuro: A&O X4. Cranial nerves II through XII are grossly intact. No focal neuro deficits Skin: No obvious skin lesions or rashes Psych: Appropriate affect. Pleasant and cooperative Results & Data Results & Data ([facility]) Vital Signs (Past 12 Hours) Vital Signs Temp Pulse Resp BP Pulse Ox 01/19/22 08:00 68 20 111/68 92 01/18/22 23:57 36.8 C 68 17 113/67 93 Laboratory Results 01/19/22 07:20 01/19/22 07:20 PG Care Time/CCT Total # of Minutes Spent Total Time Spent with Patient: Total time spent is greater than 50% in coordination of care (as documented) at patient's floor/unit and/or counseling patient: Coding Level of Care Code 45701 Subseq Hosp Care Lvl 2 Diagnoses COVID-19 U07.1 Acute UTI N39.0 Leukocytosis D72.829 Acute on chronic renal failure N17.9; N18.9 Failure to thrive Acute urinary retention R33.8 Hypertension I10 Hypercholesterolemia E78.00 Transaminitis R74.01 Elevated troponin R77.8
[2022-01-19] MEDS: CHOLECALCIFEROL 1,000 UNITS 25 MCG TAB PO SCH (09:53)
[2022-01-19] MEDS: CIPROFLOXACIN 500 MG TAB PO SCH ×2 (09:53→22:02)
[2022-01-19] MEDS: guaiFENesin 600 MG TABCR PO SCH ×2 (09:53→22:02)
[2022-01-19] MEDS: ENOXAPARIN INJ 40 MG/0.4 ML SYR SQ SCH (09:53)
[2022-01-19] MEDS: ZINC SULFATE 220 MG CAPSULE PO SCH (09:53)
[2022-01-19] MEDS: lisinopril 10 MG TAB PO SCH (09:53)
[2022-01-19] MEDS: ASCORBIC ACID 500 MG TAB PO SCH (09:54)
[2022-01-19] MEDS: NYSTATIN OINT 15 GM TUBE EXT SCH ×2 (09:54→22:01)
[2022-01-19] MEDS ORDERED: SODIUM CHLORIDE 0.9% 1000ML 1,000 ML IV SCH (10:15)
[2022-01-19] MEDS: TAMSULOSIN HCL 0.4 MG CAP PO SCH (17:51)
[2022-01-20 08:10] LABS: Basophils # (auto) 0.04 K/uL (0-0.2); Basophils % (auto) 0.3 %; Eosinophils # (auto) 0.49 K/uL (0-0.5); Eosinophils % (auto) 3.9 %; Hematocrit (blood only) 49.7 % (42-52); Immature Granulocytes # (auto) 0.26 K/uL (0.00-0.02); Immature Granulocytes % (auto) 2.1 %; Lymphocytes # (auto) 2.49 K/uL (1.2-3.4); Lymphocytes % (auto) 19.8 %; Mean Corpuscular Hemoglobin 32.1 pg (25-34); Mean Corpuscular Hgb Conc 34.2 g/dL (32-36); Mean Corpuscular Volume 93.8 fL (80-100); Mean Platelet Volume 10.6 fL (7.4-10.4); Monocytes # (auto) 1.27 K/uL (0.11-0.59); Monocytes % (auto) 10.1 %; Neutrophils # (auto) 8.02 K/uL (1.4-6.5); Neutrophils % (auto) 63.8 %; Platelet Count 305 K/uL (130-400); RDW Coefficient of Variation 14.4 % (11.5-14.5); White Blood Count 12.57 K/uL (4.8-10.8)
[2022-01-20] MEDS: ENOXAPARIN INJ 40 MG/0.4 ML SYR SQ SCH (08:18)
[2022-01-20] MEDS: ASCORBIC ACID 500 MG TAB PO SCH (08:20)
[2022-01-20] MEDS: ZINC SULFATE 220 MG CAPSULE PO SCH (08:20)
[2022-01-20] MEDS: lisinopril 10 MG TAB PO SCH (08:21)
[2022-01-20] MEDS: CHOLECALCIFEROL 1,000 UNITS 25 MCG TAB PO SCH (08:21)
[2022-01-20] MEDS: CIPROFLOXACIN 500 MG TAB PO SCH ×2 (08:21→20:11)
[2022-01-20] MEDS: NYSTATIN OINT 15 GM TUBE EXT SCH ×2 (08:22→20:11)
[2022-01-20] MEDS: guaiFENesin 600 MG TABCR PO SCH ×2 (08:22→20:11)
--- NOTE | 2022-01-20 08:26 | Hospitalist Progress Note ---
Date of Service January 20, 2022 Assessment & Plan (1) COVID-19: Plan: * Unclear as to the acuteness of this diagnosis given his symptom onset and exposure 1 month ago * Unfortunately without previous positive, will need to initiate isolation from date of positive test--continue Covid isolation precautions * mild hypoxemia noted (initially 82% on RA)--back and forth from RA to 2L supplemental O2. * CT of the chest showing extensive groundglass opacities compatible with viral PNA * Received 5 doses of Decadron but subsequently stopped with increasing creatinine and no longer having the need for oxygen as benefit did not outweigh the risk * Outside of the window thus not a candidate for Remdesivir * continue neb treatments prn * continue Vitamin C, zinc, Vitamin D supplementation * continue Mucolytics, antitussives * completed Empiric antibiotic coverage with Zithromax / Rocephin in the event of superimposed bacterial pneumonia (although not highly suspicious for this) (2) Acute UTI: Plan: * urine culture growing pansensitive serratia * likely contributing to his symptoms of generalized weakness along with his urinary retention (? prostatitis) * Did require See catheter upfront but has since been removed and voiding without difficulty * On empiric Rocephin upfront (3 doses). Initially was planning to treat X 3 days for uncomplicated UTI; however,upon further questioning-- did report mild pain at the base of the penis with BM--?prostatitis. * has since been transitioned to oral Cipro (watching closely given risk of confusion in elderly) x21 days given concern of associated prostatitis. Tolerating this without issues. Last dose 02/04 (3) Acute urinary retention: Plan: * ese catheter placed initially * patient with underlying BPH and concurrent UTI/?prostatitis (which is likely contributing) * Continue Flomax * See removed and no issues with voiding thus far-- continue to monitor (4) Leukocytosis: Plan: * was 14.48 upon arrival (likely from UTI and Covid) * did improve but uptrending (which is now likely steroid induced) as clinical improvement noted * continue to monitor (susy with discontinuation of steroids) (5) Acute on chronic renal failure: Plan: * presenting Cr 1.8. * thought to be s/s dehydration given poor oral intake * baseline unclear as had been 1.4 - 1.8 since 2017 with review of records * improved with IVF (1.4) * lisinopril held upfront but has since been resumed * Cr. uptrending again- now 1.6. Likely steroid induced--> received 5 doses of Decadron and I do not believe the benefit of 5 additional doses outweighs the risk. Decadron stopped * continue gently IV hydration * follow labs to trend (6) Failure to thrive: Plan: * Suspect that this is related to his Covid diagnosis * PT/OT --> recommending rehab. ob board. Referral out to [facility] but they are requesting patient remain in isolation until 01/23 (10 days from the posit shar test) prior to them taking patient * metal burnisher consulted and added carnation supplements * Case management consult for discharge planning- appreciate assistance (7) Transaminitis: Plan: * Total bilirubin has remained normal (0.6) * AST/ALT slightly elevated at 46 and 89 (and remain slightly elevated) * Suspect Covid related * Hepatotoxic agents on hold (including statin). Would advise a 2-week drug holiday with continued monitoring * with continued elevated, will obtain further labs and an US (8) Elevated troponin: Plan: * Troponin of 0.05 upon presentation (only slight elevated as reference range 0.0 - 0.04) * Had no reports of chest pain or EKG changes * Was not trended * Since I have met this patient on 01/16-- he has not had any cardiac complaints * No further work-up at this time (9) Hypertension: Plan: * Lisinopril resumed (held on admit d/t KRISTIE on CKD) * BP currently 124/65 * Creatinine currently 1.6. If continues to climb, would be so inclined as to discontinue SHERYL inhibitor and transition to nonrenally excreted antihypertensive agent (10) Hypercholesterolemia: Plan: * AST/ALT mildly elevated for which his statin is on hold (this could be related to Covid) * obtain futher labs and RUQ US * continue to monitor Plan: PT/OT recommending rehab-- referral to [facility]. Need to complete 10 days isolation (10 days from day of test) plan of care to be D/W Dr. Reddy. Further orders as warranted Admission and Anticipated Discharge Date Admission Date: January 14, 2022 Supervising Physician Co-Signing Physician Notes Attending Attestation - Chart reviewed, care plan d/w PA Oxana Pedersen. I agree with the aguiar components of her documentation. Patient stable, improved, and waiting for 10-day isolation period to end so that he can attend rehab post-d/c. Tigre Reddy MD Subjective Patient seen on daily rounds today. Vocalizes no complaints or concerns. Feeling well. Denies fevers, chills, chest pain, shortness of breath, abdominal pain, nausea or vomiting. Still requiring up to 2 L intermittently of supplemental oxygen but [id number] from O2 to room air. Nursing voices no complaints or concerns. Review of Systems Review of Systems: All systems reviewed and are unremarkable except as noted in HPI and below Denies fevers, chills, headache, nasal congestion, sore throat, cough, chest pain, shortness of breath, palpitations, orthopnea, PND, abdominal pain, nausea, vomiting, diarrhea, constipation, dysuria, hematuria, frequency, back pain, joint pain or swelling, easy bruising or bleeding, skin lesions or rashes. Physical Exam Physical Exam: General: Resting comfortably in his hospital bed. NAD. HEENT: Head is AT/NC. Buccal mucosa is moist and pink Neck: No JVD. Negative hepatojugular reflex Cardiac: RRR without M/G/R Lungs: Speaking full sentences on ambient air. Normal respiratory effort. Diminished breath sounds without W/R/R Abdomen: Normoactive X4. Soft and nontender in all quadrants. Extremities: No peripheral clubbing cyanosis or edema Neuro: A&O X4. Cranial nerves II through XII are grossly intact. No focal neuro deficits Skin: No obvious skin lesions or rashes Psych: Appropriate affect. Pleasant and cooperative Results & Data Results & Data ([facility]) Vital Signs (Past 12 Hours) Vital Signs Temp Pulse Resp BP Pulse Ox 01/20/22 03:02 36.1 C L 76 18 103/66 90 01/19/22 22:08 36.6 C 73 104/61 91 PG Care Time/CCT Total # of Minutes Spent Total Time Spent with Patient: Total time spent is greater than 50% in coordination of care (as documented) at patient's floor/unit and/or counseling patient: Coding Level of Care Code 74953 Subseq Hosp Care Lvl 2 Diagnoses COVID-19 U07.1 Acute UTI N39.0 Acute urinary retention R33.8 Leukocytosis D72.829 Acute on chronic renal failure N17.9; N18.9 Failure to thrive Transaminitis R74.01 Elevated troponin R77.8 Hypertension I10 Hypercholesterolemia E78.00
[2022-01-20 09:10] LABS: Albumin Level 3.3 gm/dl (3.4-5.0); BUN Creatinine Ratio 23.8 (10-20); Bilirubin,Total 0.6 mg/dl (0.2-1.0); Calcium 8.8 mg/dl (8.5-10.1); Creatinine Clr Calc Pharmacy 39.1 ml/min; Est GFR (African American) 44.1 ml/min; Est GFR (Non-African American) 38.1 ml/min; Globulin 3.4 gm/dl (2.5-4.0); Potassium 4.6 mmol/L (3.5-5.1); Total Protein 6.7 gm/dl (6.0-8.3)
[2022-01-20] MEDS: TAMSULOSIN HCL 0.4 MG CAP PO SCH (14:46)
[2022-01-20] MEDS ORDERED: SODIUM CHLORIDE 0.9% 1000ML 1,000 ML IV SCH (15:00)
[2022-01-20 16:37] LABS: Hepatitis B Surf Ag Rflx Conf Neg (Neg)
[2022-01-20 17:05] LABS: Hepatitis C IgG 13Yrs+Old_Rflx Neg (Neg)
--- NOTE | 2022-01-20 19:54 | Ultrasound Report ---
ULTRASOUND RIGHT UPPER QUADRANT ABDOMEN CLINICAL HISTORY: Elevated hepatic transaminases. COMPARISON STUDY: Abdominal CT dated 01/14/2022. TECHNIQUE: Portable real-time, grayscale, and color flow sonography of the right upper quadrant of th e abdomen was performed. Images are reviewed in the transverse and longitudinal planes. FINDINGS: Liver: The liver is normal in size and slightly heterogeneous in echotexture. There is no intrahepati c biliary ductal dilatation. The main portal vein is patent. Gallbladder: The gallbladder is surgically absent. The common bile duct measures up to 0.4 cm in diam eter. Pancreas: Visualized portions of the pancreatic head and body are normal in appearance. The splenic v ein is patent. Right kidney: Survey images of the right kidney demonstrate cortical atrophy. Echotexture is normal. There is no hydronephrosis. Ascites: None. IMPRESSION: Unremarkable sonographic assessment of the right upper quadrant noting status post cholec ystectomy. ACT 112: Negative or not required by law. Electronically signed by: Syd Emery M.D. 01/20/2022 7:53 PM
[2022-01-21 07:54] LABS: Hematocrit (blood only) 44.2 % (42-52); Hemoglobin 15.3 g/dL (14.0-18.0); Mean Corpuscular Hemoglobin 32.2 pg (25-34); Mean Corpuscular Hgb Conc 34.6 g/dL (32-36); Mean Corpuscular Volume 93.1 fL (80-100); Mean Platelet Volume 10.3 fL (7.4-10.4); Platelet Count 229 K/uL (130-400); RDW Coefficient of Variation 14.5 % (11.5-14.5); RDW Standard Deviation 48.4 fL (36.4-46.3); Red Blood Count 4.75 M/uL (4.7-6.1)
[2022-01-21 08:20] LABS: Albumin Globulin Ratio 1.1 (0.9-2); Albumin Level 2.9 gm/dl (3.4-5.0); BUN Creatinine Ratio 19.6 (10-20); Bilirubin,Total 0.6 mg/dl (0.2-1.0); Calcium 7.9 mg/dl (8.5-10.1); Est GFR (African American) 49.4 ml/min; Est GFR (Non-African American) 42.6 ml/min; Globulin 2.7 gm/dl (2.5-4.0); Total Protein 5.6 gm/dl (6.0-8.3)
[2022-01-21] MEDS: lisinopril 10 MG TAB PO SCH (09:20)
[2022-01-21] MEDS: CIPROFLOXACIN 500 MG TAB PO SCH ×2 (09:20→21:05)
[2022-01-21] MEDS: guaiFENesin 600 MG TABCR PO SCH ×2 (09:20→21:06)
[2022-01-21] MEDS: CHOLECALCIFEROL 1,000 UNITS 25 MCG TAB PO SCH (09:21)
[2022-01-21] MEDS: ENOXAPARIN INJ 40 MG/0.4 ML SYR SQ SCH (09:21)
[2022-01-21] MEDS: ASCORBIC ACID 500 MG TAB PO SCH (09:21)
[2022-01-21] MEDS: NYSTATIN OINT 15 GM TUBE EXT SCH ×2 (09:22→21:09)
--- NOTE | 2022-01-21 12:00 | Hospitalist Progress Note ---
Date of Service January 21, 2022 Assessment & Plan (1) COVID-19: Plan: * Unclear as to the acuteness of this diagnosis given his symptom onset and exposure 1 month ago * Unfortunately without previous positive, will need to initiate isolation from date of positive test--continue Covid isolation precautions * mild hypoxemia noted (initially 82% on RA)--back and forth from RA to 2L supplemental O2. * CT of the chest showing extensive groundglass opacities compatible with viral PNA * Received 5 doses of Decadron but subsequently stopped with increasing creatinine and no longer having the need for oxygen as benefit did not outweigh the risk * Outside of the window thus not a candidate for Remdesivir * continue neb treatments prn * continue Vitamin C, zinc, Vitamin D supplementation * continue Mucolytics, antitussives * completed Empiric antibiotic coverage with Zithromax / Rocephin in the event of superimposed bacterial pneumonia (although not highly suspicious for this) (2) Acute UTI: Plan: * urine culture growing pansensitive serratia * likely contributing to his symptoms of generalized weakness along with his urinary retention (? prostatitis) * Did require See catheter upfront but has since been removed and voiding without difficulty * On empiric Rocephin upfront (3 doses). Initially was planning to treat X 3 days for uncomplicated UTI; however,upon further questioning-- did report mild pain at the base of the penis with BM--?prostatitis. * has since been transitioned to oral Cipro (watching closely given risk of confusion in elderly) x21 days given concern of associated prostatitis. Tolerating this without issues. Last dose 02/04 (3) Acute urinary retention: Plan: * see catheter placed initially * patient with underlying BPH and concurrent UTI/?prostatitis (which is likely contributing) * Continue Flomax * See removed and no issues with voiding thus far-- continue to monitor (4) Leukocytosis: Plan: * was 14.48 upon arrival (likely from UTI and Covid) * did improve but uptrending (which is now likely steroid induced) as clinical improvement noted * resolved with discontinuation of decadron (5) Acute on chronic renal failure: Plan: * presenting Cr 1.8. * Given IV fluids and lisinopril held upfront * Creatinine waxed and waned since for which Decadron stopped after 5 doses as benefit no longer outweighing risk * Creatinine improved at 1.5 (6) Failure to thrive: Plan: * Suspect that this is related to his Covid diagnosis * PT/OT --> recommending rehab. ob board. Referral out to [facility] but they are requesting patient remain in isolation until 3 (10 days from the positive test) prior to them taking patient * workplace trainer and assessor consulted and added carnation supplements * Case management consult for discharge planning- appreciate assistance (7) Transaminitis: Plan: * Total bilirubin has remained normal (0.6) * AST/ALT slightly elevated at 46 and 89 (and remain slightly elevated) * Suspect Covid related * Hepatotoxic agents on hold (including statin). Would advise a 2-week drug holiday with continued monitoring * RUQ ultrasound unremarkable * Copper pending * CMV IgM/IgG pending * EBV panel pending * Hepatitis panelnonreactive (8) Elevated troponin: Plan: * Troponin of 0.05 upon presentation (only slight elevated as reference range 0.0 - 0.04) * Had no reports of chest pain or EKG changes * Was not trended * Since I have met this patient on 01/16-- he has not had any cardiac complaints * No further work-up at this time (9) Hypertension: Plan: * stable on lisinopril (10) Hypercholesterolemia: Plan: * AST/ALT mildly elevated for which his statin is on hold (this could be related to Covid) * obtain futher labs and RUQ US * continue to monitor (11) Pneumonia due to COVID-19 virus: Plan: PT/OT recommending rehab-- referral to [facility]. Need to complete 10 days isolation (10 days from day of test) plan of care to be D/W Dr. Reddy. Further orders as warranted Admission and Anticipated Discharge Date Admission Date: January 14, 2022 Supervising Physician Co-Signing Physician Notes Attending Attestation - Chart reviewed, care plan d/w MIKAL Pedersen. I agree w/ the aguiar components of her documentation with the following addition - Pneumonia due to COVID-19 virus, as confirmed with CT chest, and clinically with intermittent NC O2 requirement. Overall COVID illness is stable. Awaiting placement at [facility]. Cont PT/OT in meantime. Cont Rx of UTI. Transaminitis - likely 2nd COVID infection - improving. Tigre Reddy MD Subjective Patient seen on daily rounds today. Sleeping when seen but easily aroused. No significant complaints or concerns. Denies fevers, chills, chest pain, shortness of breath, abdominal pain, nausea or vomiting. Review of Systems Review of Systems: All systems reviewed and are unremarkable except as noted in HPI and below Denies fevers, chills, headache, nasal congestion, sore throat, cough, chest pain, shortness of breath, palpitations, orthopnea, PND, abdominal pain, nausea, vomiting, diarrhea, constipation, dysuria, hematuria, frequency, back pain, joint pain or swelling, easy bruising or bleeding, skin lesions or rashes. Physical Exam Physical Exam: General: Resting comfortably in his hospital bed. NAD. HEENT: Head is AT/NC. Buccal mucosa is moist and pink Neck: No JVD. Negative hepatojugular reflex Cardiac: RRR without M/G/R Lungs: Speaking full sentences on ambient air. Normal respiratory effort. Diminished breath sounds without W/R/R Abdomen: Normoactive X4. Soft and nontender in all quadrants. Extremities: No peripheral clubbing cyanosis or edema Neuro: A&O X4. Cranial nerves II through XII are grossly intact. No focal neuro deficits Skin: No obvious skin lesions or rashes Psych: Appropriate affect. Pleasant and cooperative Results & Data Results & Data ([facility]) Vital Signs (Past 12 Hours) Vital Signs Temp Pulse Resp BP BP Pulse Ox 01/21/22 07:47 36.5 C 75 20 103/69 91 01/21/22 03:56 36.4 C L 75 18 91/66 L 92 01/21/22 00:49 37.0 C 81 18 91/56 L 91 Laboratory Results 01/21/22 07:25 01/21/22 07:25 TB: 0.6 AST: 36 ALT:74 Diagnostic Findings RUQ U/S IMPRESSION: Unremarkable sonographic assessment of the right upper quadrant noting status post cholecystectomy. PG Care Time/CCT Total # of Minutes Spent Total Time Spent with Patient: Total time spent is greater than 50% in coordination of care (as documented) at patient's floor/unit and/or counseling patient: Coding Level of Care Code 38598 Subseq Hosp Care Lvl 1 Diagnoses COVID-19 U07.1 Acute UTI N39.0 Acute urinary retention R33.8 Leukocytosis D72.829 Acute on chronic renal failure N17.9; N18.9 Failure to thrive Transaminitis R74.01 Elevated troponin R77.8 Hypertension I10 Hypercholesterolemia E78.00 Pneumonia due to COVID-19 virus U07.1; J12.82
[2022-01-21] MEDS: ZINC SULFATE 220 MG CAPSULE PO SCH (12:33)
[2022-01-21] MEDS: TAMSULOSIN HCL 0.4 MG CAP PO SCH (16:11)
--- NOTE | 2022-01-22 07:40 | Hospitalist Progress Note ---
Date of Service January 22, 2022 Assessment & Plan (1) COVID-19: Plan: * Unclear as to the acuteness of this diagnosis given his symptom onset and exposure 1 month ago * Unfortunately without previous positive, will need to initiate isolation from date of positive test--continue Covid isolation precautions * mild hypoxemia noted (initially 82% on RA)--initially requiring 2 L of supplemental oxygen. On room air X days * CT of the chest showing extensive groundglass opacities compatible with viral PNA * Received 5 doses of Decadron but subsequently stopped with increasing creatinine and no longer having the need for oxygen as benefit did not outweigh the risk * Outside of the window thus not a candidate for Remdesivir * continue neb treatments prn * continue Vitamin C, zinc, Vitamin D supplementation * continue Mucolytics, antitussives * completed Empiric antibiotic coverage with Zithromax / Rocephin in the event of superimposed bacterial pneumonia (although not highly suspicious for this) * day 10 is isolation is 3/5 (off precautions on 01/24) per infection control (2) Acute UTI: Plan: * urine culture growing pansensitive serratia * likely contributing to his symptoms of generalized weakness along with his urinary retention (? prostatitis) * Did require See catheter upfront but has since been removed and voiding without difficulty * On empiric Rocephin upfront (3 doses). Initially was planning to treat X 3 days for uncomplicated UTI; however,upon further questioning-- did report mild pain at the base of the penis with BM--?prostatitis. * has since been transitioned to oral Cipro (watching closely given risk of confusion in elderly) x21 days given concern of associated prostatitis. Tolerating this without issues. Last dose 02/04 (3) Acute urinary retention: Plan: * see catheter placed initially * patient with underlying BPH and concurrent UTI/?prostatitis (which is likely contributing) * Continue Flomax * See removed and no issues with voiding thus far-- continue to monitor (4) Delirium: Plan: * Altered mental status noted upfront. I have not witnessed any evidence of confusion since I met him on 01/16 * Has been answering all questions appropriately for me but nursing staff reports some subtle confusion on the afternoon of 01/22. He was awoken from a deep sleep and made strange comments about the clock but when fully awake answered all questions appropriately. * Suspect he is having some hospital-acquired delirium especially given the isolation * Has been on Cipro X days and has tolerated it. If worsening or persistent thing, may need to consider transitioning but doubtful the cause (5) Leukocytosis: Plan: * was 14.48 upon arrival (likely from UTI and Covid) * did improve but uptrending (which is now likely steroid induced) as clinical improvement noted * resolved with discontinuation of decadron (6) Acute on chronic renal failure: Plan: * presenting Cr 1.8. * Given IV fluids and lisinopril held upfront * Creatinine waxed and waned since for which Decadron stopped after 5 doses as benefit no longer outweighing risk * Creatinine improved at 1.5 (7) Failure to thrive: Plan: * Suspect that this is related to his Covid diagnosis * PT/OT --> recommending rehab. ob board. 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 Would advise a 2-week drug holiday with continued monitoring * RUQ ultrasound unremarkable * Copper pending * CMV IgM/IgG pending * EBV panel pending * Hepatitis panelnonreactive (9) Elevated troponin: Plan: * Troponin of 0.05 upon presentation (only slight elevated as reference range 0.0 - 0.04) * Had no reports of chest pain or EKG changes * Was not trended * Since I have met this patient on 01/16-- he has not had any cardiac complaints * No further work-up at this time (10) Hypertension: Plan: * stable on lisinopril (11) Hypercholesterolemia: Plan: * AST/ALT mildly elevated for which his statin is on hold (this could be related to Covid) * obtain futher labs and RUQ US * continue to monitor Plan: PT/OT recommending rehab-- referral to [facility]. Need to complete 10 days isolation (10 days from day of test)--> may be out of isolation precaution as early as 01/24 plan of care to be D/W Dr. Reddy. Further orders as warranted Admission and Anticipated Discharge Date Admission Date: January 14, 2022 Supervising Physician Co-Signing Physician Notes Attending Attestation - Chart reviewed, care plan d/w MIKAL Pedersen. I agree with the aguiar components of her documentation. Tigre Reddy MD Subjective Patient seen on daily rounds today. Sleeping when seen but easily aroused. No significant complaints or concerns. Denies fevers, chills, chest pain, shortness of breath, abdominal pain, nausea or vomiting. Asked nurse about his increased level of fatigue today and she reports that he has been up early and was working with both physical and occupational therapy. She did vocalize later in the afternoon that he was having some slight confusion that he has not had up until this point. When asked specifically, he answered all questions appropriately but she mentioned he was making strange comments about the clocks. Review of Systems Review of Systems: All systems reviewed and are unremarkable except as noted in HPI and below Denies fevers, chills, headache, nasal congestion, sore throat, cough, chest pain, shortness of breath, palpitations, orthopnea, PND, abdominal pain, nausea, vomiting, diarrhea, constipation, dysuria, hematuria, frequency, back pain, joint pain or swelling, easy bruising or bleeding, skin lesions or rashes. Physical Exam Physical Exam: General: Resting comfortably in his hospital bed. NAD. HEENT: Head is AT/NC. Buccal mucosa is moist and pink Neck: No JVD. Negative hepatojugular reflex Cardiac: RRR without M/G/R Lungs: Speaking full sentences on ambient air. Normal respiratory effort. Diminished breath sounds without W/R/R Abdomen: Normoactive X4. Soft and nontender in all quadrants. Extremities: No peripheral clubbing cyanosis or edema Neuro: A&O X4. Cranial nerves II through XII are grossly intact. No focal neuro deficits Skin: No obvious skin lesions or rashes Psych: Increased fatigue noted today. Mentation seemed appropriate but when nursing staff reassessed him later in the afternoon they mention some subtle confusion Results & Data Results & Data ([facility]) Vital Signs (Past 12 Hours) Vital Signs Temp Pulse Resp BP Pulse Ox 01/21/22 23:58 36.4 C L 81 18 106/66 92 PG Care Time/CCT Total # of Minutes Spent Total Time Spent with Patient: Total time spent is greater than 50% in coordination of care (as documented) at patient's floor/unit and/or counseling patient: Coding Level of Care Code 73125 Subseq Hosp Care Lvl 1 Diagnoses COVID-19 U07.1 Acute UTI N39.0 Acute urinary retention R33.8 Leukocytosis D72.829 Acute on chronic renal failure N17.9; N18.9 Failure to thrive Transaminitis R74.01 Elevated troponin R77.8 Hypertension I10 Hypercholesterolemia E78.00 Delirium R41.0
[2022-01-22] MEDS: ENOXAPARIN INJ 40 MG/0.4 ML SYR SQ SCH (08:57)
[2022-01-22] MEDS: lisinopril 10 MG TAB PO SCH (08:58)
[2022-01-22] MEDS: CIPROFLOXACIN 500 MG TAB PO SCH ×2 (09:00→20:00)
[2022-01-22] MEDS: CHOLECALCIFEROL 1,000 UNITS 25 MCG TAB PO SCH (09:00)
[2022-01-22] MEDS: ASCORBIC ACID 500 MG TAB PO SCH (09:00)
[2022-01-22] MEDS: NYSTATIN OINT 15 GM TUBE EXT SCH ×2 (09:00→20:00)
[2022-01-22] MEDS: guaiFENesin 600 MG TABCR PO SCH ×2 (09:00→20:00)
[2022-01-22] MEDS: BENZONATATE 100 MG CAPSULE PO PRN (09:03)
[2022-01-22 12:02] LABS: Epstein Barr Virus Early Ag Ab >150.00 U/mL
[2022-01-22] MEDS: ZINC SULFATE 220 MG CAPSULE PO SCH (13:48)
[2022-01-22] MEDS: TAMSULOSIN HCL 0.4 MG CAP PO SCH (18:35)
[2022-01-22 20:22] LABS: Appearance Urine Clear (Clear); Bilirubin Urine Negative (Negative); Blood Urine Negative (Negative); Color Urine Yellow; Glucose Urine UA Negative (Negative); Ketones Urine Negative (Negative); Leukocyte Esterase Urine Negative (Negative); Nitrite Urine Negative (Negative); Protein Urine Negative (Negative); Specific Gravity Urine 1.006 (1.000-1.030); Urobilinogen Urine Negative (Negative)
[2022-01-23] MEDS: ENOXAPARIN INJ 40 MG/0.4 ML SYR SQ SCH (08:46)
[2022-01-23] MEDS: ASCORBIC ACID 500 MG TAB PO SCH (08:46)
[2022-01-23] MEDS: NYSTATIN OINT 15 GM TUBE EXT SCH (08:46)
[2022-01-23] MEDS: CIPROFLOXACIN 500 MG TAB PO SCH (08:46)
[2022-01-23] MEDS: guaiFENesin 600 MG TABCR PO SCH (08:46)
[2022-01-23] MEDS: CHOLECALCIFEROL 1,000 UNITS 25 MCG TAB PO SCH (08:46)
[2022-01-23] MEDS: lisinopril 10 MG TAB PO SCH (08:46)
[2022-01-23] MEDS: ZINC SULFATE 220 MG CAPSULE PO SCH (11:02)
--- NOTE | 2022-01-23 12:08 | Discharge Summary ---
Date of Service January 23, 2022 Admission HPI Per Admitting Provider Tomi Alexander is a 81-year-old elderly white male with a past medical history of hyper tension, hyperlipidemia, BPH who was seen in his primary care physician's office today, accompanied by his son, due to complaints of generalized weakness, several falls at home, poor appetite and weight loss. Evidently, patient has also been experiencing shortness of breath for the past month. Unfortunately, he is a poor historian and subsequently history is obtained through review of his primary care visits as well as his recent emergency department visit from 01/10/2022. Per his primary care provider's note, patient had Covid exposure approximately 1 month ago and developed cough, chills, and shortness of breath shortly thereafter. He did not seek Covid testing however since that time has had poor appetite, weight loss, worsening shortness of breath, increasing weakness and recent fall about a week ago. He also had acute onset of urinary retention on 01/10 which prompted a visit to the emergency department. During that visit, See catheter was placed and he was encouraged to follow up with urology. He has not yet done so, next appointment with urology is scheduled in April. Again, per documentation, patient was found to be hypoxic in the exam room of his primary care provider's office today with an oxygen saturation of 82% on room air which eventually recovered with some deep breaths to 93% on room air. EKG was performed in the office showing sinus tachycardia and his blood pressure was abnormally low for him at 102/64. Eventually, both the son and patient were agreeable to transfer to the emergency department for further work-up. In the ER this evening, patient noted to have an elevated white count of 14,500 with left shift. Radiologic evidence of groundglass bibasilar opacities consistent with viral pneumonia. Due to acute on chronic renal failure with a creatinine of 1.87, contrast was not used for this CT. A UA was ordered but has not yet been collected. He tested positive for COVID-19 via rapid antigen testing. He claims to be fully vaccinated. He denies having booster shot. Patient is currently awake and alert but seems somewhat confused. He denies chest pain, shortness of breath at rest, N/V/D, fever, or chills. He does admit to soreness of his testicles and penis. Patient lives at home with his son, he is currently unaccompanied in the emergency department. In the ER, he was started on IV fluid hydration and was given a dose of Decadron. He will be admitted under the hospitalist service for further evaluation care. Principal Diagnosis COVID-19 PNA Transient hypoxia UTI w/ urinary retention (resolved) Possible prostatitis KRISTIE on CKD (resolved) Discharge Exam GENERAL: 81 yo well-developed, well-nourished elderly WM. NAD. LUNGS: Good air exchange, nonlabored, very faint fine bibasilar crackles. CARDIOVASCULAR: Regular rate and rhythm. No M/G/R. No JVD. ABDOMEN: Soft, non-tender and non-distended. BS normal x 4 quad. : see catheter in place EXTREMITIES: No edema. Non-tender. Peripheral pulses +2/4. NEUROLOGIC: A&O x3. PSYCHIATRIC: Cooperative. Appropriate mood and affect. SKIN: Warm, dry, intact. No rashes or lesions. Groin excoriation noted in folds. Discharge Data Allergies Allergy/AdvReac Type Severity Reaction Status Date / Time adhesive tape Allergy Intermediate REDDENED Verified 01/14/22 15:44 SKIN atorvastatin [From Lipitor] AdvReac Intermediate myalgias Verified 01/14/22 15:44 Consultations 01/14/22 17:23 ED Decision to Admit Stat Ordered Studies Chest X-Ray 01/14/22 13:55 XR chest 1V portable CLINICAL HISTORY: cough, shortness of breath COMPARISON STUDY: No previous studies for comparison. FINDINGS: Lung volumes are normal. No pneumothorax or pleural effusion is noted. Extensive bilateral airspace opacities are present. Cardiomegaly is noted. There is no evidence for pulmonary edema. IMPRESSION: Extensive bilateral airspace opacities which favor an infectious process such as viral pneumonia. Radiographic follow up to ensure resolution is recommended. ACT 112: Negative or not required by law. Electronically signed by: Kevin Palmer M.D. 01/14/2022 3:[address] 01/14/22 14:57 CT OF THE HEAD WITHOUT CONTRAST CLINICAL HISTORY: Altered mental status. COMPARISON STUDY: No previous studies for comparison. TECHNIQUE: Helical axial images of the head were obtained without IV contrast. Automated exposure control was utilized for the study. A dose lowering technique was utilized adhering to the principles of ALARA. FINDINGS: No acute intracranial hemorrhage, midline shift or mass effect is present. The ventricular system is unremarkable. The basal cisterns are patent. No extra-axial collections are present. White matter hypodensity suggests small vessel disease. There are no findings to suggest acute dural sinus thrombosis or acute territorial infarct. No significant calvarial abnormalities are present. Visualized portions of the sinuses and mastoid air cells are clear. IMPRESSION: No acute intracranial findings. ACT 112: Negative or not required by law. Electronically signed by: Kevin Palmer M.D. 01/14/2022 4:33 PM Abdomen/Pelvis CT 01/14/22 15:31 CT chest diagnostic wo con, CT abd pelvis wo con CT DOSE: 2468.85 mGy.cm CLINICAL HISTORY: 81 years-old Male with ams, hypoxia. Acute hypoxia with altered mental status. COVID Positive. Acute urinary tract infection TECHNIQUE: Multiaxial CT images of the chest, abdomen and pelvis were performed without contrast. A dose lowering technique was utilized adhering to the principles of ALARA. COMPARISON: Chest radiograph of same day, lumbar spine radiographs 02/03/2016 FINDINGS: CT CHEST: No large thyroid nodule. Mildly prominent subcentimeter subcarinal lymph nodes. The heart is upper limits of normal in size. Extensive coronary artery calcifications are noted along with calcifications of the aortic annulus and thoracic aortic arch. Mild fusiform dilation of the ascending thoracic aorta measures 4.2 x 4.1 cm. No pneumothorax, or pleural effusion. Extensive multifocal intermixed groundglass and consolidative opacities are noted within a multilobar and bibasilar predominant distribution. The central airways are patent. Unremarkable soft tissues. Degenerative changes of the shoulders and spine. CT ABDOMEN/PELVIS: No pneumatosis or pneumoperitoneum. The unenhanced spleen, pancreas, adrenal gl ands and liver appear unremarkable. Cholecystectomy. Mild nonspecific bilateral perinephric stranding. 1.5 cm cortical calcification of the interpolar left kidney. There is associated cortical thinning with parenchymal scarring within the area of calcification. No ureteral calculi or hydronephrosis. A See catheter is noted within a decompressed urinary bladder which demonstrates wall thickening. Prostamegaly. Small fat filled inguinal hernias. Atherosclerosis of the abdominal aorta without aneurysm. No adenopathy. Small hiatal hernia. No bowel obstruction or bowel wall thickening. Mild fecal retention. Noninflamed appendix. Prior ventral abdominal wall herniorrhaphy. Soft tissues are otherwise unremarkable. Degenerative changes of the spine, pelvis and hips. IMPRESSION: 1. Extensive bilateral mixed groundglass and consolidative opacities within a bibasilar prominent distribution are compatible with viral pneumonia. 2. Mild fusiform dilation of the ascending thoracic aorta, 4.2 x 4.1 cm. 3. No bowel obstruction or bowel wall thickening. Normal appendix. 4. Small hiatal hernia. 5. Prostamegaly with findings suggestive of chronic bladder outlet obstruction. 6. 1.5 cm left renal calcification. ACT 112: Negative or not required by law. Electronically signed by: Johnny Browning M.D. 01/14/2022 4:[address] 01/14/22 15:31 CT chest diagnostic wo con, CT abd pelvis wo con CT DOSE: 2468.85 mGy.cm CLINICAL HISTORY: 81 years-old Male with ams, hypoxia. Acute hypoxia with altered mental status. COVID Positive. Acute urinary tract infection TECHNIQUE: Multiaxial CT images of the chest, abdomen and pelvis were performed without contrast. A dose lowering technique was utilized adhering to the principles of ALARA. COMPARISON: Chest radiograph of same day, lumbar spine radiographs 02/03/2016 FINDINGS: CT CHEST: No large thyroid nodule. Mildly prominent subcentimeter subcarinal lymph nodes. The heart is upper limits of normal in size. Extensive coronary artery calcifications are noted along with calcifications of the aortic annulus and thoracic aortic arch. Mild fusiform dilation of the ascending thoracic aorta me asures 4.2 x 4.1 cm. No pneumothorax, or pleural effusion. Extensive multifocal intermixed groundglass and consolidative opacities are noted within a multilobar and bibasilar predominant distribution. The central airways are patent. Unremarkable soft tissues. Degenerative changes of the shoulders and spine. CT ABDOMEN/PELVIS: No pneumatosis or pneumoperitoneum. The unenhanced spleen, pancreas, adrenal glands and liver appear unremarkable. Cholecystectomy. Mild nonspecific bilateral perinephric stranding. 1.5 cm cortical calcification of the interpolar left kidney. There is associated cortical thinning with parenchymal scarring within the area of calcification. No ureteral calculi or hydronephrosis. A See catheter is noted within a decompressed urinary bladder which demonstrates wall thickening. Prostamegaly. Small fat filled inguinal hernias. Atherosclerosis of the abdominal aorta without aneurysm. No adenopathy. Small hiatal hernia. No bowel obstruction or bowel wall thickening. Mild fecal retention. Noninflamed appendix. Prior ventral abdominal wall herniorrhaphy. Soft tissues are otherwise unremarkable. Degenerative changes of the spine, pelvis and hips. IMPRESSION: 1. Extensive bilateral mixed groundglass and consolidative opacities within a bibasilar prominent distribution are compatible with viral pneumonia. 2. Mild fusiform dilation of the ascending thoracic aorta, 4.2 x 4.1 cm. 3. No bowel obstruction or bowel wall thickening. Normal appendix. 4. Small hiatal hernia. 5. Prostamegaly with findings suggestive of chronic bladder outlet obstruction. 6. 1.5 cm left renal calcification. ACT 112: Negative or not required by law. Electronically signed by: Johnny Browning M.D. 01/14/2022 4:47 PM Liver Ultrasound 01/20/22 15:00 ULTRASOUND RIGHT UPPER QUADRANT ABDOMEN CLINICAL HISTORY: Elevated hepatic transaminases. COMPARISON STUDY: Abdominal CT dated 01/14/2022. TECHNIQUE: Portable real-time, grayscale, and color flow sonography of the right upper quadrant of the abdomen was performed. Images are reviewed in the transverse and longitudinal planes. FINDINGS: Liver: The liver is normal in size and slightly heterogeneous in echotexture. There is no intrahepatic biliary ductal dilatation. The main portal vein is patent. Gallbladder: The gallbladder is surgically absent. The common bile duct measures up to 0.4 cm in diameter. Pancreas: Visualized portions of the pancreatic head and body are normal in appearance. The splenic vein is patent. Right kidney: Survey images of the right kidney demonstrate cortical atrophy. Echotexture is normal. There is no hydronephrosis. Ascites: None. IMPRESSION: Unremarkable sonographic assessment of the right upper quadrant noting status post cholecystectomy. ACT 112: Negative or not required by law. Electronically signed by: Syd Emery M.D. 01/20/2022 7:53 PM Hospital Course (1) COVID-19: * Unclear as to the acuteness of this diagnosis given his symptom onset and exposure 1 month ago * Unfortunately without previous positive, will need to initiate isolation from date of positive test--continue Covid isolation precautions * mild hypoxemia noted (initially 82% on RA)--initially requiring 2 L of supplemental oxygen. On room air X days * CT of the chest showing extensive groundglass opacities compatible with viral PNA * Received 5 doses of Decadron but subsequently stopped with increasing creatinine and no longer having the need for oxygen as benefit did not outweigh the risk * Outside of the window thus not a candidate for Remdesivir * continue neb treatments prn * continue Vitamin C, zinc, Vitamin D supplementation * continue Mucolytics, antitussives * completed Empiric antibiotic coverage with Zithromax / Rocephin in the event of superimposed bacterial pneumonia * Completed 10 day quarantine as of today (01/23) (2) Acute UTI: * urine culture growing pansensitive serratia * likely contributing to his symptoms of generalized weakness along with his urinary retention (? prostatitis) * Did require See catheter upfront but has since been removed and voiding without difficulty * On empiric Rocephin upfront (3 doses). Initially was planning to treat X 3 days for uncomplicated UTI; however,upon further questioning-- did report mild pain at the base of the penis with BM--?prostatitis. * has since been transitioned to oral Cipro (watching closely given risk of confusion in elderly) x21 days given concern of associated prostatitis. Tolerating this without issues. Last dose 02/04 (3) Acute urinary retention: * see catheter placed initially when he came to the ER on 01/10 for urinary retention * patient with underlying BPH and concurrent UTI/?prostatitis (which is likely contributing) * Continue Flomax * See removed and no issues with voiding thus far-- continue to monitor (4) Delirium: * Altered mental status noted upfront. I have not witnessed any evidence of confusion since I met him on 01/16 * Has been answering all questions appropriately for me but nursing staff reports some subtle confusion on the afternoon of 01/22. He was awoken from a deep sleep and made strange comments about the clock but when fully awake answered all questions appropriately. * Suspect he is having some hospital-acquired delirium especially given the isolation * Has been on Cipro X days and has tolerated it. If worsening or persistent thing, may need to consider transitioning but doubtful the cause (5) Leukocytosis: * was 14.48 upon arrival (likely from UTI and Covid) * did improve but uptrending (which is now likely steroid induced) as clinical improvement noted * resolved with discontinuation of decadron (6) Acute on chronic renal failure: * presenting Cr 1.8. * Given IV fluids and lisinopril held upfront * Creatinine waxed and waned since for which Decadron stopped after 5 doses as benefit no longer outweighing risk * Creatinine improved at 1.5 (7) Failure to thrive: * Suspect that this is related to his Covid diagnosis * PT/OT --> recommending rehab. ob board. Referral out to [facility] but they are requesting patient remain in isolation until 01/23 (10 days from the positive test) * driver's license examiner consulted and added carnation supplements * Case management consult for discharge planning (8) Transaminitis: * Total bilirubin has remained normal (0.6) * AST/ALT elevated upfront and downtrending * Suspect Covid related * Hepatotoxic agents on hold (including statin). Would advise a 2-week drug holiday with continued monitoring * RUQ ultrasound unremarkable * Copper pending * CMV IgM/IgG pending * EBV panel back and appears c/w past infection * Hepatitis panelnonreactive (9) Elevated troponin: * Troponin of 0.05 upon presentation (only slight elevated as reference range 0.0 - 0.04)--suspect demand ischemia related to transient hypoxia * Had no reports of chest pain or EKG changes * Was not trended * No cardiac complaints * No further work-up at this time (10) Hypertension: * stable on lisinopril (11) Hypercholesterolemia: * AST/ALT mildly elevated for which his statin is on hold (this could be related to Covid) PT/OT recommending acute rehabilitation. Case management consulted to assist in this process, [facility] able to take patient today on 01/23/2022. At this time patient is deemed medically and hemodynamically stable for discharge today. We will plan to complete course of Cipro for possible prostatitis as noted above. Continue holding statin therapy for drug holiday due to elevated liver function tests which can be resumed at the discretion of his primary care physician. Above plan of care has been discussed with Dr. Zhang who is also seen and evaluated this patient. Total Time Total Time Spent Total Time Spent (In Minutes): >30 minutes Discharge Plan Discharge Items Patient Disposition: Transfer Inpatient Rehab Fac Reason For Visit: COVID, KRISTIE, LEUKOCYTOSIS Discharge Diagnosis: Generalized weakness/debility likely due to COVID-19 infection, Urinary tract infection (resolved) Activity: As commented below Activity Comment: with assistance as tolerated Non-emergency contact: Primary Care Provider Call non-emergency contact if: you have any medication questions and your symptoms worsen Follow-up/Referrals: Yessy Mills CRNP [Primary Care Provider] - Diet: Regular Diet Texture: Easy to Chew Addtl Attending Provider Instructions: You were hospitalized due to generalized weakness and debility, I suspect the symptoms were a combination of having COVID-19 as well as having a urinary tract infection You were treated with antibiotics for your the urinary tract infection which has since resolved. At this time, you have completed 10 days of quarantine for COVID. Would consider being vaccinated against COVID-19 in the near future. Continue dietary protein supplements which can be taken up to 3 times a day. Can utilize boost, Ensure, or Penhook. Continue therapy at acute rehab in order to facilitate transitioning back to your home. Complete course of Cipro which has been prescribed in the event that your urinary symptoms could be related to inflammation and infection of your prostate. You will complete this course on 02/04/22, next dose is due on 01/23/22 in the evening or before bed. Your atorvastatin has been held due to elevated liver function tests, which could be related to your recent COVID infection; however, would continue holding this medication until your follow up with your family doctor or your liver function tests have normalized. Recommend follow-up with your primary care physician upon discharge from acute rehab facility. Pending Studies at Discharge: Yes Studies:: CMV and Copper testing ordered d/t elevated LFTs, these are pending Stand-Alone Forms: My [facility] Skilled Items Patient informed of condition?: Yes DNR: No Discharge Level of Care: Acute rehab Communicable Disease: No Discharge Prognosis: Improving Lines: None Urinary Catheter: No Medications and DC Order Prescriptions: New ciprofloxacin HCl 500 mg Tablet 500 mg PO BID Qty: 23 RF: 0 Continued cholecalciferol (vitamin D3) 2,000 unit capsule 2,000 units PO DAILY Qty: 90 RF: 3 lisinopril 10 mg tablet 10 mg PO DAILY Qty: 90 RF: 3 tamsulosin 0.4 mg capsule 0.4 mg PO DAILY Qty: 90 RF: 3 Discontinued atorvastatin 40 mg tablet 40 mg PO DAILY Qty: 90 RF: 3 Discharge Orders: Discharge Order (Routine); Ordered 01/23/22 Ordered By: Palak Meyer Admission Data Admit Date/Time: 01/14/22 18:15 Attending Provider: Jessica Zhang Admit Provider: Tigre Watkins Primary Care Provider: Yessy Mills Other Providers: Tigre Watkins ; [facility] Other Interventions: Discharge Summary Assessment (RN) Last Done: 01/23/22 12:49 Supervising Physician Co-Signing Physician Notes PA Supervision Note: I personally saw and examined the patient. I verified all aguiar points and agree with MIKAL Meyer with the following exceptions and/or additions: S-patient has no complaints. No shortness of breath, ready for discharge O- Vitals reviewed Gen: AAOx3, NAD HEENT: Anicteric sclerae, EOMI CV: RRR no mgr nl S1S2 Pulm: CTAB no wcr Abd: +BS soft NT ND no masses or hernias Ext: No edema, 2+ DP pulses Skin: No rashes, warm/dry Neuro: Full strength throughout A/[id number]-[id number]-old male here with Covid and hypoxia, UTI and urinary retention, delirium Now much improved stable for discharge Coding Level of Care Code D/C DAY MANAGEMENT >30 MINS Diagnoses COVID-19 U07.1 Acute UTI N39.0 Acute urinary retention R33.8 Delirium R41.0 Leukocytosis D72.829 Acute on chronic renal failure N17.9; N18.9 Failure to thrive Transaminitis R74.01 Elevated troponin R77.8 Hypertension I10 Hypercholesterolemia E78.00
[2022-01-23 19:02] LABS: CMV IgG Antibody <0.60 U/mL; CMV IgM Antibody <30.00 AU/mL; Copper, Serum 90 mcg/dL (70-175); Hepatitis A Antibody IgM NON-REACTIVE (NON-REACTIVE); Hepatitis B Core Antibody IgM NON-REACTIVE (NON-REACTIVE)
== END 2022-01-23 14:12 | DRG 177 ==
LOC: ED 13:25 → SUATTDRO 18:15 → 2N 18:15